=== PATIENT | male | born 1955 | race Caucasian/White ===

== ENCOUNTER 2017-04-04 15:38 | Inpatient (IN) ==
[2017-04-04] MEDS ORDERED: ACETAMINOPHEN 325 MG TABLET PO PRN (17:38)
[2017-04-04] MEDS ORDERED: DOCUSATE SODIUM 100 MG CAPSULE PO PRN (17:38)
[2017-04-04] MEDS ORDERED: DEXTROSE 50% 50 ML VIAL IV PRN (17:38)
[2017-04-04] MEDS ORDERED: DEXTROSE 31 GM ORAL.SUSP PO PRN (17:38)
[2017-04-04] MEDS ORDERED: ONDANSETRON 4 MG/2 ML VIAL IV PRN (17:38)
[2017-04-04] MEDS ORDERED: MAGNESIUM HYDROXIDE 30 ML ORAL.SUSP PO PRN (17:38)
--- NOTE | 2017-04-04 18:15 | Internal Med History&Physical ---
Medical - H&P: HPI Patient information: Note initiated : 04/04/17 at 6:11 pm Service Date, if different from initiated Date: [] Patient: Will Felix 61 y/o M admitted on 04/04/17 for Actue renal failure, hyperkalemia. Chief Complaint: [] Chief complaint: Lightheadedness History of present illness: Mr. Felix is a 61 year old man who presented to [facility] yesterday, complaining of lightheadedness. He notes that he has not been feeling very well for about 2 weeks, and has noted feeling somewhat lightheaded with slight head and neck ache, upper back discomfort, and generally feeling unwell whenever he goes out in the heat and tries to do things like chop wood. He says his symptoms resolve almost immediately once he gets out of the heat. He does have a history of coronary disease, and says he occasionally has some chest discomfort, but it never lasts. Yesterday something happened with his truck, and while he was out of the truck leaning underneath to have a look, he had slightly sharp left-sided chest discomfort and felt a little short of breath. This again resolved once he got back in the truck. He says he only occasionally has dyspnea with exertion, and denies any orthopnea. He has been having some mild heartburn for the last several days, which is unusual for him. He has not had any dysuria lately. He says he has been drinking lots of fluids to stay hydrated. He does take occasional ibuprofen, 200 mg, maybe twice a week for aches and pains. He also uses occasional topical Voltaren gel, for aching neck, but again not very often. He says he thought that it was just time to hold his doxazosin again, as he has had lightheadedness in the past related to that, which resolved when it was stopped. Evaluation showed acute renal failure associated with severe hyperkalemia. The patient was given IV fluids overnight, in addition to Kayexalate, albuterol , potassium and insulin. BUN and creatinine are improved today, but potassium continues to rise. He is now transferred here so that he can have access to nephrology consultation and possible dialysis. Past medical history: Coronary artery disease, status post stenting Pacemaker and AICD placement,? History of V. tach. Atrial fibrillation, status post ablation Type 2 diabetes, diet controlled. Hyperlipidemia Hypertension Morbid obesity, peak weight 499, status post gastric bypass Gout, as well as much and marked pseudogout. Obstructive sleep apnea, mild, on CPAP GERD History of gastric bypass History of both hypertension and hypotension History of kidney stones History of asthma Medications: Pravachol 80 mg nightly Lasix 10 mg daily Warfarin as directed Ibuprofen 200 mg once or twice a week as needed Coreg 25 mg twice daily Lisinopril 20 mg daily Aspirin 81 mg daily Potassium 10 mEq daily Allopurinol 300 mg daily Colchicine 0.6 mg daily Flexeril 10 mg nightly as needed Voltaren gel topically as needed joint pain Tramadol as needed Doxazosin 4 mg every afternoon, recently discontinued Calcium plus D5 100 mg daily Multivitamin 1 daily Allergies: Codeine Cortisone, caused syncope Ibuprofen? Byetta pollen Family history: Mother with CHF and COPD. Father with COPD. One brother with acute renal failure, hyperkalemia, uncontrolled diabetes. Another brother has heart disease. A sister has lung cancer. Another sister had COPD. Social history: The patient is and lives with his . He is retired on medical disability. He has never been a smoker and does not use drugs. He quit drinking alcohol many years ago. He previously worked as a cabinet professional. He says now he will occasionally cut firewood. Medical - H&P: Meds Allergies Allergy/AdvReac Type Severity Reaction Status Date / Time bee venom protein (honey bee) Allergy Severe Difficulty Verified 04/04/17 17:41 Breathing codeine AdvReac Intermediate Agitated Verified 04/04/17 17:40 Medical - H&P: Exam - Constitutional Vitals: Temperature 97.9, heart rate 70, respiratory rate 16, blood pressure 157/96, O2 saturation 100% on room air -Patient has produced 450 mL of urine since arrival On exam, this is a very pleasant, overweight white male, in no acute distress. He is alert and oriented. Head: Normocephalic, atraumatic. Eyes: PERRLA, EOMI, anicteric. Ears: TMs and canals are clear. Pharynx: Pharynx is clear. Mucosa is normal. He has a full upper plate. Most of the teeth of his lower jaw are missing, but there are a few broken teeth towards the front. Neck: Is supple, without lymphadenopathy, JVD, thyromegaly, bruits. Cardiac exam: Regular rate and rhythm, normal S1 and S2. No murmurs, rubs, gallops are noted. Pacemaker is noted in the left upper chest. Lungs: Clear to auscultation, without rales, rhonchi, wheezes. Abdomen: Is obese, but appears soft and nontender. There is no CVA tenderness. There is no guarding or rebound. Bowel sounds are active. Extremities: Shows minimal edema at the ankles, mostly nonpitting. There is no cyanosis, clubbing, edema. There are no breaks in the skin noted. Pulses are intact. Neurologic: Is grossly nonfocal. Skin exam: Did not show any obvious rashes or other worrisome lesions. Medical - H&P: Reslt - Labs CBC & Chem 7: 04/04/17 19:22 Labs: Labs from [facility]: April 03: Chemistry panel: Sodium 140, potassium 6.0, chloride 113, bicarb 15, anion gap 12, creatinine 4.65 April 04: Sodium 142, potassium 5.5, chloride 116, bicarb 16, anion gap 10, BUN 77, creatinine 3.97, glucose 74 Calcium 7.4 LFTs normal Troponin less than 0.06 Pro time is 35 with INR of 3.5 CBC shows white blood cell count 5.8, hemoglobin 11.6, hematocrit 36, MCV 90, RDW 15. Differential shows 8.6% eosinophils, absolute monocyte count of 590, with normal 100-400. CPK is elevated at 263 Renal ultrasound shows echogenic kidneys suggesting medical renal disease, no hydronephrosis Troponin is normal at less than 0.06 Urinalysis shows pH of 5.5, specific gravity 1.015, negative protein, negative ketones, trace blood, negative nitrites, rare red blood cell Random urine sodium is 70 Random creatinine is 64 Venous blood gas: PH 7.23 (7.3-7.4), PCO2 41, PO2 51, bicarb 17 (24-30), O2 saturation 78% EKG was paced. Medical - H&P: A/P (1) ARF (acute renal failure) Current visit: Yes Status: Acute (2) Acute hyperkalemia Current visit: Yes Status: Acute (3) Acidosis, metabolic Current visit: Yes Status: Acute (4) Elevated INR Current visit: Yes Status: Acute (5) Coronary artery disease Current visit: Yes Status: Chronic (6) Type 2 diabetes mellitus Current visit: Yes Status: Chronic (7) Hypertension Current visit: Yes Status: Chronic (8) Sleep apnea in adult Current visit: Yes Status: Chronic (9) Atrial fibrillation Current visit: Yes Status: Resolved (10) Pacemaker Current visit: Yes Status: Chronic (11) AICD (automatic cardioverter/defibrillator) present Current visit: Yes Status: Chronic (12) Morbid obesity Current visit: Yes Status: Chronic (13) Gout Current visit: Yes Status: Chronic (14) GERD (gastroesophageal reflux disease) Current visit: Yes Status: Acute (15) Asthma Current visit: Yes Status: Chronic - Narrative A/P Narrative: #1 renal. Apparent acute renal failure, likely at least partially due to dehydration and working out in the heat. He is also on several medications that could cause issues, including his as needed ibuprofen, topical Voltaren, allopurinol, lisinopril, colchicine. -Renal consult. -Continue hydration with IV fluids. Avoid nephrotoxic medications. -Severe hyperkalemia. This appears to have responded, at least briefly, to usual treatments. Repeat Kayexalate tonight. Continue insulin and IV fluids. Non-anion gap acidosis. Continue to monitor. 2. Hypertension. -Resume Coreg. Increase if needed. Lisinopril and Lasix are on hold at this time, but diuretics could be added back if needed. 3. Cardiac. Patient has history of coronary artery disease, stents, atrial fibrillation, pacemaker and AICD. -He does not appear to have had a a recent cardiac event, and certainly reports no symptoms that are really consistent with that. There is a chance that he is developed heart failure and/or hypotension, causing acute renal failure due to hypoperfusion. Consider echocardiogram. -Continue Coreg, aspirin. . . Resume warfarin as needed, to keep INR between 2 and 3. -Resume statin, KYLE, aspirin as tolerated. 4. Endocrine. -Type 2 diabetes. -Sliding scale insulin, Accu-Cheks. 5. CODE STATUS: Patient requests full code. 6. DVT prophylaxis: He is anticoagulated at this time. Management of Coumadin per pharmacy. 7. Pulmonary. History of sleep apnea, although the patient says it is very mild. We will monitor him tonight, and add BiPAP if needed. -Reported history of asthma. Albuterol as needed. 8. History of morbid obesity, status post bypass. Continue vitamin supplements. 9. History of gout. I will need to verify with nephrology if we should continue with the allopurinol and colchicine, or weight until his renal function improves. Next 10. GI. Recent GERD. Add Tums as needed. 11. Poor dentition. Patient hopes to follow-up with the [facility]. Approximately 60 minutes has been spent so far today, reviewing the patient's records from [facility], reviewing his case with the transferring doctor, interviewing and examining the patient, and writing orders.
[2017-04-04 19:18] LABS: Appearance,Urine CLEAR; Bilirubin,Urine NEG (NEG); Color,Urine STRAW; Glucose,Urine (UA) NEGATIVE (NEG); Leukocyte Esterase,Urine NEG /uL (NEG); Nitrate,Urine NEG (NEG); Protein,Urine NEG (NEG); Urine Blood NEG mg/dL (<0.03); Urobilinogen,Urine NEG (NEG)
[2017-04-04] MEDS: 0.45 % SODIUM CHLORIDE 1,000 ML IV SCH (20:29)
[2017-04-04 20:47] LABS: ALT/SGPT 27 U/l (0-40); Albumin 3.9 gm/dL (3.2-5.2); Albumin/Globulin Ratio 1.4 (1.0-2.3); Alkaline Phosphatase 85 U/L (39-117); Bilirubin,Direct < 0.2 mg/dL (0.0-0.3); Blood Urea Nitrogen 72 mg/dl (8-23); Gamma Glutamyl Transpeptidase 27 U/L (8-61); Magnesium 1.3 mg/dL (1.6-2.5); Uric Acid 5.4 mg/dL (2.5-8.0)
[2017-04-04] MEDS: INSULIN LISPRO 1 UNIT/0.01 ML UNIT SQ SCH (21:03)
--- NOTE | 2017-04-04 22:14 | Nephrology Consult Note ---
History of Present Illness - Reason for Consult Patient information: Note initiated : 04/04/17 at 10:07 pm Service Date, if different from initiated Date: [] Patient: Will Felix 61 y/o M admitted on 04/04/17 for Actue renal failure, hyperkalemia. Chief Complaint: [] - Chief Complaint Acute Renal Failure, Hyperkalemia - History of Present Illness 61 years old male transferred from [facility] in [facility], where he reports being admitted for "blurry vision" and "light-headedness" and stated that his BP was 89/50. He was reportedly out in the [place] [employer] [place]. He is diabetic and has h/o hypertension with episodes of hypotension in the past as well. He also has h/o Afib, CAD with stents. He stated that he takes Lasix and Lisinopril regularly and was also taking Ibuprofen that he usually takes 1-2 tablets twice a week. He was treated with IVF including D5W with bicarb and received insulin and Kayexalate as well. SCr was reportedly above 4.5 with serum potassium in mid 5s on last check at [facility]. Recent labs labs done at [facility] show serum potassium 5.1, SCr 3.4. He is now receiving IV 0.45 saline and has been urinating very frequently. Lasix, Lisinopril and NSAIDs, colchicine have been stopped. He does appear to have fluid overload but said that he has had "CHF" in the past. He stated that he usually have mild pedal edema which does appear to be more than his baseline , at the present time. Patient stated that he was also on Doxazosin that was recently stopped by his physician due to low blood pressure Review of Systems Constitutional: as per HPI Past History Past medical history: HTN, DM, Afib, CAD with stents. Hypotension. Hyperlipidemia. Gout. Morbid obesity s/p gastric bypass. Nephro-ureterolithiasis. AICD / pacemaker. Past surgical history: Gastric bypass Past family history: No FH of renal disease Past social history: Denied tobacco, alcohol or drug abuse. Reports being on disability. Lives with . Medications and Allergies Home Medications Medication Instructions Recorded Confirmed Type Allopurinol [Zylopriim] 300 mg PO DAILY 04/04/17 04/04/17 History Aspirin [Lo-Dose Aspirin EC] 81 mg PO QHS 04/04/17 04/04/17 History Calcium Carbonate/Vitamin D3 1 each PO DAILY 04/04/17 04/04/17 History [Os-Agustín 500+D3 Caplet] Carvedilol [Coreg] 25 mg PO BID 04/04/17 04/04/17 History Colchicine [Colcrys] 0.6 mg PO DAILY 04/04/17 04/04/17 History Cyclobenzaprine [Flexeril] 10 mg PO Q8H PRN 04/04/17 04/04/17 History Diclofenac Sodium [Voltaren] 100 gm TP PRN PRN 04/04/17 04/04/17 History Doxazosin [Cardura] 4 mg PO DAILY 04/04/17 04/04/17 History Furosemide [Lasix] 20 mg PO DAILY 04/04/17 04/04/17 History Ibuprofen [I-Prin] 200 - 400 mg PO Q4HP PRN 04/04/17 04/04/17 History Lisinopril [Zestril] 20 mg PO QHS 04/04/17 04/04/17 History Mv-Mn/FA/Coq10/Lycopene/Lutein 1 each PO DAILY 04/04/17 04/04/17 History [Theragran-M Premier 50+ Caplet] Potassium Chloride [Kdur] 10 meq PO DAILY 04/04/17 04/04/17 History Pravastatin Sodium [Pravachol] 80 mg PO QHS 04/04/17 04/04/17 History Warfarin Sodium [Jantoven] 3.75 mg PO DAILY 04/04/17 04/04/17 History Warfarin Sodium [Jantoven] 7.5 mg PO DAILY 04/04/17 04/04/17 History traMADol HCL [Ultram] 50 - 100 mg PO Q6HP PRN 04/04/17 04/04/17 History Allergies Allergy/AdvReac Type Severity Reaction Status Date / Time bee venom protein (honey bee) Allergy Severe Difficulty Verified 04/04/17 17:41 Breathing exenatide [From Byetta] Allergy Hives Verified 04/04/17 20:19 codeine AdvReac Mild Agitated Verified 04/04/17 19:48 Cortisone AdvReac Fainting Verified 04/04/17 20:19 ibuprofen AdvReac Nausea Verified 04/04/17 20:19 Exam - Vital Signs Vital signs: Temp Pulse Resp BP Pulse Ox 98.2 F 72 18 140/84 99 04/04/17 20:00 04/04/17 20:00 04/04/17 20:00 04/04/17 20:00 04/04/17 20:00 Results - Lab Results 04/04/17 19:22 Most recent lab results Calcium 7.1 mg/dl (8.6-10.4) L 04/04/17 19:22 Phosphorus 5.2 mg/dL (2.7-4.5) H 04/04/17 19:22 Magnesium 1.3 mg/dL (1.6-2.5) L 04/04/17 19:22 Assessment and Plan (1) ARF (acute renal failure) Baseline SCr - unknown JABIER / ARF, non-oliguric, history suggestive of possible volume depletion as well as hemodynamic injury in the setting of concomitant use of ACEI, NSAIDs and loop diuretics - medications on hold now. Hyperkalemia resolved, Kayexalate 15-30 grams po daily prn for serum potassium > 5.5. Mild metabolic acidosis - received IV D5W-Na bicarb, expect to improve with improvement in renal function - check Lactic, salicylate. IV saline infusion rate to be reduced to 100 ml/hr, check CK. VBG with am labs, renal diet, follow BMP Status: Acute
[2017-04-04] MEDS ORDERED: MAGNESIUM SULFATE 2 GM/50 ML BAG IV ONE ×2 (22:18→22:25)
[2017-04-05] MEDS: 0.45 % SODIUM CHLORIDE 1,000 ML IV SCH ×5 (02:52→17:17)
[2017-04-05 03:29] LABS: ABG Methemoglobin 0.3 % (0.4-1.5); VBG Base Excess -6.8 (-2.0-2.0); VBG HCO3 18.2 mmol/L (24.0-28.0); VBG Oxygen Saturation 93.1 % (40.0-70.0); VBG PCO2 34.6 mmHg (41.0-51.0); VBG PH 7.34 U (7.32-7.42); VBG PO2 120 mmHg (25-40); VBG Total CO2 19.3 mmol/L (25.0-29.0)
[2017-04-05 03:31] LABS: Basophils # (Auto) 0.1 K/mcL (0.0-0.3); Basophils % (Auto) 1.5 % (0.0-2.0); Eosinophils # (Auto) 0.5 K/mcL (0.0-0.7); Eosinophils % (Auto) 8.1 % (0.0-7.0); Granulocytes % (Auto) 54.5 % (38.0-78.0); Lymphocytes # (Auto) 1.4 K/mcL (1.5-4.8); Lymphocytes % (Auto) 25.1 % (15.5-49.0); Mean Cell Volume 89.6 fL (80.0-100.0); Mean Corpuscular HGB Conc 33.3 g/dL (31.0-36.0); Mean Corpuscular Hemoglobin 29.8 pg (26.0-34.0); Monocytes # (Auto) 0.6 K/mcL (0.1-0.9); Monocytes % (Auto) 10.8 % (1.0-12.0); Platelet Count 118 K/mcL (140-440); RBC 3.63 M/mcL (4.50-5.90); Red Cell Distribution Width 16.5 % (11.5-14.5)
[2017-04-05 04:03] LABS: ALT/SGPT 20 U/l (0-40); Albumin 3.4 gm/dL (3.2-5.2); Albumin/Globulin Ratio 1.5 (1.0-2.3); Alkaline Phosphatase 72 U/L (39-117); Bilirubin,Direct < 0.2 mg/dL (0.0-0.3); Blood Urea Nitrogen 64 mg/dl (8-23); Gamma Glutamyl Transpeptidase 25 U/L (8-61); Magnesium 1.5 mg/dL (1.6-2.5); Uric Acid 5.3 mg/dL (2.5-8.0)
[2017-04-05] MEDS ORDERED: MAGNESIUM SULFATE 2 GM/50 ML BAG IV ONE ×2 (04:45→04:56)
[2017-04-05] MEDS: INSULIN LISPRO 1 UNIT/0.01 ML UNIT SQ SCH ×4 (07:41→21:23)
--- NOTE | 2017-04-05 13:52 | Internal Med Progress Note ---
Medical - PN: Subj Patient information: Note initiated : 04/05/17 at 1:52 pm Service Date, if different from initiated Date: [] Patient: Will Felix 61 y/o M admitted on 04/04/17 for Actue Renal Failure, Hyperkalemia. Chief Complaint: [] Interval history: April 04, 2017: History of present illness: Mr. Felix is a 61 year old man who presented to [facility] yesterday, complaining of lightheadedness. He notes that he has not been feeling very well for about 2 weeks, and has noted feeling somewhat lightheaded with slight head and neck ache, upper back discomfort, and generally feeling unwell whenever he goes out in the heat and tries to do things like chop wood. He says his symptoms resolve almost immediately once he gets out of the heat. He does have a history of coronary disease, and says he occasionally has some chest discomfort, but it never lasts. Yesterday something happened with his truck, and while he was out of the truck leaning underneath to have a look, he had slightly sharp left-sided chest discomfort and felt a little short of breath. This again resolved once he got back in the truck. He says he only occasionally has dyspnea with exertion, and denies any orthopnea. He has been having some mild heartburn for the last several days, which is unusual for him. He has not had any dysuria lately. He says he has been drinking lots of fluids to stay hydrated. He does take occasional ibuprofen, 200 mg, maybe twice a week for aches and pains. He also uses occasional topical Voltaren gel, for aching neck, but again not very often. He says he thought that it was just time to hold his doxazosin again, as he has had lightheadedness in the past related to that, which resolved when it was stopped. Evaluation showed acute renal failure associated with severe hyperkalemia. The patient was given IV fluids overnight, in addition to Kayexalate, albuterol , potassium and insulin. BUN and creatinine are improved today, but potassium continues to rise. He is now transferred here so that he can have access to nephrology consultation and possible dialysis. April 05: The patient says he is feeling pretty well today. He denies any more lightheadedness or blurry vision. He says he is eating and drinking well. He denies chest pain or palpitations, shortness of breath, abdominal pain, nausea vomiting or diarrhea. He told the [facility] consultant today that his blood pressure had dropped into the 80s at times at home. Labs this morning, show continued improvement in BUN, creatinine, potassium, acidosis. -Oxygen was monitored overnight, and he did not show signs of desaturation even though he did not have his CPAP with him. - Constitutional Vitals: Vital Signs Temp Pulse Resp BP Pulse Ox 98.2 F 68 16 147/84 98 04/05/17 12:00 04/05/17 09:34 04/05/17 12:00 04/05/17 12:38 04/05/17 12:00 Period Temp Pulse Resp BP Sys/Mckeon Pulse Ox Last 24 Hr 97.6 F-98.2 F 68-75 16-18 140-161/78-110 97-100 Intake and Output 04/04/17 04/05/17 04/05/17 21:59 05:59 13:59 Intake Total 240 / 240 1760 / 1760 120 / 120 Output Total 450 / 450 1250 / 1250 450 / 450 Balance -210 / -210 510 / 510 -330 / -330 Weight 329 lb 1.6 oz Intake & Output: Intake & Output 04/04/17 04/05/17 04/05/17 21:59 05:59 13:59 Intake Total 240 / 240 1760 / 1760 120 / 120 Output Total 450 / 450 1250 / 1250 450 / 450 Balance -210 / -210 510 / 510 -330 / -330 Weight 329 lb 1.6 oz Intake: IV 1100 / 1100 MAGNESIUM SULFATE 2 gm In 50 / 50 50 ml As IV .[facility] Rx#:[id number] Oral 240 / 240 660 / 660 120 / 120 Output: Void Amount 450 / 450 1250 / 1250 450 / 450 Other: Meal Dinner Snack d/t CBG of 67 Breakfast Percent of Meal Consumed 100% 100% 75% Feeding Ability Assist with Tray Set Up Independent # Voids 1 On exam, he was walking around his room when I enter the room. Neck is supple without obvious JVD. Cardiac exam shows regular rate and rhythm. Lungs are clear to auscultation. Abdomen is soft and nontender. Extremities: Show about 1+ edema almost to the knees. Neurologic exam is grossly nonfocal. Medical - PN: Obj Da - Labs CBC & Chem 7: 04/05/17 03:02 04/05/17 03:02 Labs: Abnormal Lab Results 04/05/17 04/05/17 04/05/17 03:02 03:02 03:02 RBC Hgb Hct RDW Plt Count Eos % (Auto) Lymph # (Auto) PT 30.0 H INR 2.7 H ABG Methemoglobin 0.3 L VBG pCO2 34.6 L VBG pO2 120 H VBG HCO3 18.2 L VBG Total CO2 19.3 L VBG O2 Saturation 93.1 H VBG Base Excess -6.8 L Carboxyhemoglobin 3.8 H Total Hemoglobin 10.6 L Carbon Dioxide 17 L Anion Gap BUN 64 H Creatinine 3.2 H Glucose 67 L Calcium 6.8 L Phosphorus 5.4 H Magnesium 1.5 L Lactate Dehydrogenase 272 H Total Creatine Kinase Total Protein 5.7 L Acetaminophen 04/05/17 04/04/17 04/04/17 03:02 19:22 18:47 RBC 3.63 L Hgb 10.8 L Hct 32.6 L RDW 16.5 H Plt Count 118 L Eos % (Auto) 8.1 H Lymph # (Auto) 1.4 L PT INR ABG Methemoglobin VBG pCO2 VBG pO2 VBG HCO3 VBG Total CO2 VBG O2 Saturation VBG Base Excess Carboxyhemoglobin Total Hemoglobin Carbon Dioxide 17 L Anion Gap 17.0 H BUN 72 H Creatinine 3.4 H Glucose Calcium 7.1 L Phosphorus 5.2 H Magnesium 1.3 L Lactate Dehydrogenase 322 H Total Creatine Kinase Total Protein Acetaminophen < 5.0 L 04/04/17 18:47 RBC Hgb Hct RDW Plt Count Eos % (Auto) Lymph # (Auto) PT INR ABG Methemoglobin VBG pCO2 VBG pO2 VBG HCO3 VBG Total CO2 VBG O2 Saturation VBG Base Excess Carboxyhemoglobin Total Hemoglobin Carbon Dioxide Anion Gap BUN Creatinine Glucose Calcium Phosphorus Magnesium Lactate Dehydrogenase Total Creatine Kinase 248 H Total Protein Acetaminophen April 05: CBC: Hemoglobin 10.8, hematocrit 32.6, RDW 16.5, platelets low at 118,000. Differential shows 8100 eosinophils -INR is within range at 2.7 Venous blood gas shows pH of 7.34, PCO2 of 34, PO2 of 120, bicarb of 18, Chemistry panel: Shows potassium 5.0, bicarbonate 17, BUN 64, creatinine 3.2, glucose 67, calcium 6.8, albumin 3.4, phosphorus elevated at 5.4, magnesium low at 1.5 April 04: MRSA screen is negative. Labs from [place]: April 03: Chemistry panel: Sodium 140, potassium 6.0, chloride 113, bicarb 15, anion gap 12, creatinine 4.65 April 04: Sodium 142, potassium 5.5, chloride 116, bicarb 16, anion gap 10, BUN 77, creatinine 3.97, glucose 74 Calcium 7.4 LFTs normal Troponin less than 0.06 Pro time is 35 with INR of 3.5 CBC shows white blood cell count 5.8, hemoglobin 11.6, hematocrit 36, MCV 90, RDW 15. Differential shows 8.6% eosinophils, absolute monocyte count of 590, with normal 100-400. CPK is elevated at 263 Renal ultrasound shows echogenic kidneys suggesting medical renal disease, no hydronephrosis Troponin is normal at less than 0.06 Urinalysis shows pH of 5.5, specific gravity 1.015, negative protein, negative ketones, trace blood, negative nitrites, rare red blood cell Random urine sodium is 70 Random creatinine is 64 Venous blood gas: PH 7.23 (7.3-7.4), PCO2 41, PO2 51, bicarb 17 (24-30), O2 saturation 78% EKG was paced. Meds: Medications Acetaminophen (Tylenol) 650 mg PO Q6HP PRN PRN Reason: PAIN/FEVER > 101 Dextrose (Dextrose 50%) 0 ml IV UD PRN PRN Reason: Hypoglycemia Diagnostic Test (Pha) (Accu-Chek) 1 each FS [facility] Last Admin: 04/05/17 12:35 Dose: 1 each Docusate Sodium (Colace) 100 mg PO BID PRN PRN Reason: Constipation Glucose (Insta-Glucose) 15 gm PO PRN PRN PRN Reason: Hypoglycemia Sodium Chloride (Sodium Chloride 0.45%) 1,000 mls @ 100 mls/hr IV .Q10H [facility] Last Admin: 04/05/17 05:52 Dose: 100 mls/hr Insulin Human Lispro (Humalog) 0 unit SQ [facility] PRN Reason: Protocol Last Admin: 04/05/17 13:43 Dose: Not Given Magnesium Hydroxide (Milk Of Magnesia) 30 ml PO DAILYP PRN PRN Reason: Constipation Ondansetron HCl (Zofran) 4 mg IV Q4HP PRN PRN Reason: Nausea And Vomiting Warfarin Sodium (Coumadin Per Pharmacy) 1 order PO DAILY@1400 [place] - ABG Interpretation ABG results: 04/05/17 03:02 ABG Methemoglobin 0.3 L VBG pH 7.34 VBG pCO2 34.6 L VBG pO2 120 H VBG HCO3 18.2 L VBG Total CO2 19.3 L VBG O2 Saturation 93.1 H VBG Base Excess -6.8 L Medical - PN: A/P - Time Spent With Patient Total time spent is greater than 50% in coordination of care (as documented) at patient's floor/unit and/or counseling patient: 25 - 35 minutes (1) ARF (acute renal failure) Status: Acute Current Visit: Yes (2) Acute hyperkalemia Status: Acute Current Visit: Yes (3) Acidosis, metabolic Status: Acute Current Visit: Yes (4) Elevated INR Status: Acute Current Visit: Yes (5) Coronary artery disease Status: Chronic Current Visit: Yes (6) Type 2 diabetes mellitus Status: Chronic Current Visit: Yes (7) Hypertension Status: Chronic Current Visit: Yes (8) Sleep apnea in adult Status: Chronic Current Visit: Yes (9) Atrial fibrillation Status: Resolved Current Visit: Yes (10) Pacemaker Status: Chronic Current Visit: Yes (11) AICD (automatic cardioverter/defibrillator) present Status: Chronic Current Visit: Yes (12) Morbid obesity Status: Chronic Current Visit: Yes (13) Gout Status: Chronic Current Visit: Yes (14) GERD (gastroesophageal reflux disease) Status: Acute Current Visit: Yes (15) Asthma Status: Chronic Current Visit: Yes - Narrative A/P Narrative: #1 renal. Apparent acute renal failure, likely at least partially due to dehydration and working out in the heat. He was on several medications that could cause issues , including his as needed ibuprofen, topical Voltaren, allopurinol, lisinopril, colchicine. -Renal consult appreciated.. -Continue hydration with IV fluids. Avoid nephrotoxic medications. -Severe hyperkalemia. Resolved. -Metabolic acidosis. Improving. Nephrology added bicarbonate and Tums. Continue to monitor. 2. Hypertension. -Resume Coreg. Increase if needed. Lisinopril and Lasix are on hold at this time, but diuretics could be added back if needed. 3. Cardiac. Patient has history of coronary artery disease, stents, atrial fibrillation, pacemaker and AICD. -He does not appear to have had a a recent cardiac event, and certainly reports no symptoms that are really consistent with that. There is a chance that he is developed heart failure and/or hypotension, causing acute renal failure due to hypoperfusion. Consider echocardiogram. -Continue Coreg, aspirin. . . Resume warfarin as needed, to keep INR between 2 and 3. -Resume statin, KYLE, aspirin as tolerated. 4. Endocrine. -Type 2 diabetes. -Sliding scale insulin, Accu-Cheks. 5. CODE STATUS: Patient requests full code. 6. DVT prophylaxis: He is anticoagulated at this time. Management of Coumadin per pharmacy. 7. Pulmonary. History of sleep apnea, although the patient says it is very mild. He did fine overnight without CPAP. -Reported history of asthma. Albuterol as needed. 8. History of morbid obesity, status post bypass. Continue vitamin supplements. 9. History of gout. -Hold colchicine. Resume allopurinol. 10. GI. Recent GERD. Add Tums as needed. 11. Poor dentition. Patient hopes to follow-up with the [facility]. Medical - PN: Qual - VTE Deep Vein Thrombosis/Pulmonary Embolism Present on Admission: No
[2017-04-05] MEDS ORDERED: 0.45 % SODIUM CHLORIDE 1,000 ML IV SCH (15:36)
--- NOTE | 2017-04-05 15:39 | Nephrology Progress Note ---
Subjective Patient information: Note initiated : 04/05/17 at 3:37 pm Service Date, if different from initiated Date: [] Patient: Will Felix 61 y/o M admitted on 04/04/17 for Actue Renal Failure, Hyperkalemia. Chief Complaint: [] Principal diagnosis: JABIER Interval history: No overnight events pt is non oliguric with some improvement in renal function he has no new symptoms today denies SOB, CP,d izziness No worsening edema Pertinent ROS: as above Objective - Vital Signs Vital signs: Vital Signs Temp Pulse Pulse Resp BP BP Pulse Ox 04/05/17 12:38 147/84 04/05/17 12:00 98.2 F 16 147/84 98 04/05/17 09:34 68 97 04/05/17 07:34 70 145/89 99 04/05/17 07:30 97.6 F 16 145/89 99 04/05/17 03:13 98.2 F 69 70 18 147/79 147/79 97 04/04/17 23:38 98.2 F 75 18 146/78 98 04/04/17 23:22 70 146/78 98 04/04/17 20:51 72 140/84 99 04/04/17 20:00 98.2 F 72 18 140/84 99 04/04/17 17:43 157/96 04/04/17 17:41 161/110 04/04/17 17:39 97.9 F 16 157/96 100 04/04/17 17:22 97.8 F 16 157/96 100 Intake and Output 04/05/17 04/05/17 04/05/17 05:59 13:59 21:59 Intake Total 1760 / 1760 120 / 120 Output Total 1250 / 1250 450 / 450 Balance 510 / 510 -330 / -330 Intake: IV 1100 / 1100 MAGNESIUM SULFATE 2 gm In 50 / 50 50 ml As IV .[facility] Rx#:[id number] Oral 660 / 660 120 / 120 Output: Void Amount 1250 / 1250 450 / 450 Other: Meal Snack d/t CBG of 67 Breakfast Percent of Meal Consumed 100% 75% Feeding Ability Independent # Voids 1 Intake & Output: Intake & Output 04/05/17 04/05/17 04/05/17 05:59 13:59 21:59 Intake Total 1760 / 1760 120 / 120 Output Total 1250 / 1250 450 / 450 Balance 510 / 510 -330 / -330 Intake: IV 1100 / 1100 MAGNESIUM SULFATE 2 gm In 50 / 50 50 ml As IV .[facility] Rx#:[id number] Oral 660 / 660 120 / 120 Output: Void Amount 1250 / 1250 450 / 450 Other: Meal Snack d/t CBG of 67 Breakfast Percent of Meal Consumed 100% 75% Feeding Ability Independent # Voids 1 - General Appearance General appearance: appears started age, obese EENT: mucous membranes moist Neck: no JVD Respiratory: clear Cardiology: no rub, no edema, normal S1, normal S2 Gastrointestinal: no tenderness, no guarding Integumentary: no rash, warm and dry Neurologic: no focal deficit, alert and oriented x3 Musculoskeletal: no deformities, no erythema Psychiatric: mood/affect appropriate - Lab 04/05/17 03:02 04/05/17 03:02 Most recent lab results Calcium 6.8 mg/dl (8.6-10.4) L 04/05/17 03:02 Phosphorus 5.4 mg/dL (2.7-4.5) H 04/05/17 03:02 Magnesium 1.5 mg/dL (1.6-2.5) L 04/05/17 03:02 Assessment and Plan (1) ARF (acute renal failure) acute renal failure likely ATN from hypotension in the setting of use of ACEI, NSAIDS and diuretics renal US done at [facility] is negative for obstructive etiology UA is normal with no protienuria and no hematuria unknown baseline s.creatinine, pt does not recollect any kidney issues metabolic acidosis from JABIER, STABLE Mild hypocalcemia, hypomagnsemia and hyperphosphatemia related to JABIER and use of diuretics anemia: will obtain work upif Hb continues to trend down h/o HTN/CHF: stable plan: magnesium replacement already given will add tums for elevated phos level and sodium bicarb for mild persistent acidosis will cut back on IVF to 75cc/hour, he has good oral intake and follow and d.c this by tomorrow continue to hold ACEI/diuretics for now avoid nephrotoxic meds dose meds to egfr monitor I/O, vital signs will follow along Status: Acute (2) Acidosis, metabolic Status: Acute
[2017-04-05] MEDS ORDERED: DEXTROSE 31 GM ORAL.SUSP PO PRN (16:36)
[2017-04-05] MEDS ORDERED: DEXTROSE 50% 50 ML VIAL IV PRN (16:36)
[2017-04-05] MEDS ORDERED: MAGNESIUM HYDROXIDE 30 ML ORAL.SUSP PO PRN (16:36)
[2017-04-05] MEDS ORDERED: DOCUSATE SODIUM 100 MG CAPSULE PO PRN (16:36)
[2017-04-05] MEDS ORDERED: CYCLOBENZAPRINE 10 MG TABLET PO PRN (16:36)
[2017-04-05] MEDS ORDERED: ACETAMINOPHEN 325 MG TABLET PO PRN (16:36)
[2017-04-05] MEDS: CALCIUM CARBONATE 500 MG TAB.CHEW CHEWED SCH (17:17)
[2017-04-05] MEDS: CARVEDILOL 12.5 MG TABLET PO SCH (17:17)
[2017-04-05] MEDS ORDERED: CALCIUM CARBONATE 500 MG TAB.CHEW CHEWED SCH (17:30)
[2017-04-05] MEDS ORDERED: WARFARIN 2 MG TABLET PO ONE (17:35)
[2017-04-05] MEDS ORDERED: WARFARIN 5 MG TABLET ONE (17:35)
[2017-04-05] MEDS ORDERED: WARFARIN 1 MG TABLET ONE (17:36)
[2017-04-05] MEDS: WARFARIN 7.5 MG TABLET PO SCH (17:38)
[2017-04-05] MEDS ORDERED: SODIUM BICARBONATE 650 MG TABLET PO SCH (21:00)
[2017-04-05] MEDS ORDERED: PRAVASTATIN SODIUM 80 MG PO SCH (21:00)
[2017-04-05] MEDS: SIMVASTATIN 40 MG TABLET PO SCH (21:19)
[2017-04-05] MEDS: SODIUM BICARBONATE 650 MG TABLET PO SCH (21:19)
[2017-04-05] MEDS: ASPIRIN 81 MG TAB.CHEW PO SCH (21:19)
[2017-04-05] MEDS ORDERED: hydrALAZINE 10 MG TABLET PO ONE (23:42)
[2017-04-06] MEDS ORDERED: FUROSEMIDE 20 MG/2 ML VIAL IV ONE ×2 (05:00→05:12)
[2017-04-06] MEDS: 0.45 % SODIUM CHLORIDE 1,000 ML IV SCH ×2 (06:50→20:26)
[2017-04-06 07:06] LABS: Basophils # (Auto) 0.1 K/mcL (0.0-0.3); Basophils % (Auto) 1.8 % (0.0-2.0); Eosinophils # (Auto) 0.5 K/mcL (0.0-0.7); Eosinophils % (Auto) 9.2 % (0.0-7.0); Granulocytes % (Auto) 58.8 % (38.0-78.0); Lymphocytes # (Auto) 1.2 K/mcL (1.5-4.8); Lymphocytes % (Auto) 20.6 % (15.5-49.0); Mean Cell Volume 91.4 fL (80.0-100.0); Mean Corpuscular Hemoglobin 30.1 pg (26.0-34.0); Monocytes # (Auto) 0.6 K/mcL (0.1-0.9); Monocytes % (Auto) 9.6 % (1.0-12.0); Platelet Count 127 K/mcL (140-440); RBC 3.99 M/mcL (4.50-5.90); Red Cell Distribution Width 16.1 % (11.5-14.5)
[2017-04-06 07:57] LABS: ALT/SGPT 27 U/l (0-40); Albumin 4.1 gm/dL (3.2-5.2); Albumin/Globulin Ratio 1.6 (1.0-2.3); Alkaline Phosphatase 89 U/L (39-117); Bilirubin,Direct < 0.2 mg/dL (0.0-0.3); Blood Urea Nitrogen 55 mg/dl (8-23); Gamma Glutamyl Transpeptidase 27 U/L (8-61); Magnesium 1.8 mg/dL (1.6-2.5); Uric Acid 5.1 mg/dL (2.5-8.0)
[2017-04-06] MEDS: CARVEDILOL 12.5 MG TABLET PO SCH ×2 (08:08→16:29)
[2017-04-06] MEDS: CALCIUM CARBONATE 500 MG TAB.CHEW CHEWED SCH ×3 (08:09→17:44)
[2017-04-06] MEDS: ALLOPURINOL 300 MG TABLET PO SCH (08:09)
[2017-04-06] MEDS: CALCIUM W/VIT D3 500 MG TABLET PO SCH (08:09)
[2017-04-06] MEDS: SODIUM BICARBONATE 650 MG TABLET PO SCH ×2 (08:09→20:24)
[2017-04-06] MEDS: MULTIVIT,THER IRON,CA,FA & MIN 1 TABLET PO SCH (08:09)
[2017-04-06] MEDS: INSULIN LISPRO 1 UNIT/0.01 ML UNIT SQ SCH ×4 (08:11→20:29)
[2017-04-06] MEDS ORDERED: amLODIPine 5 MG TABLET PO ONE (13:19)
--- NOTE | 2017-04-06 13:19 | Internal Med Progress Note ---
Medical - PN: Subj Patient information: Note initiated : 04/06/17 at 1:19 pm Service Date, if different from initiated Date: [] Patient: Will Felix 61 y/o M admitted on 04/04/17 for Actue Renal Failure, Hyperkalemia. Chief Complaint: [] Interval history: April 04, 2017: History of present illness: Mr. Felix is a 61 year old man who presented to [facility] yesterday, complaining of lightheadedness. He notes that he has not been feeling very well for about 2 weeks, and has noted feeling somewhat lightheaded with slight head and neck ache, upper back discomfort, and generally feeling unwell whenever he goes out in the heat and tries to do things like chop wood. He says his symptoms resolve almost immediately once he gets out of the heat. He does have a history of coronary disease, and says he occasionally has some chest discomfort, but it never lasts. Yesterday something happened with his truck, and while he was out of the truck leaning underneath to have a look, he had slightly sharp left-sided chest discomfort and felt a little short of breath. This again resolved once he got back in the truck. He says he only occasionally has dyspnea with exertion, and denies any orthopnea. He has been having some mild heartburn for the last several days, which is unusual for him. He has not had any dysuria lately. He says he has been drinking lots of fluids to stay hydrated. He does take occasional ibuprofen, 200 mg, maybe twice a week for aches and pains. He also uses occasional topical Voltaren gel, for aching neck, but again not very often. He says he thought that it was just time to hold his doxazosin again, as he has had lightheadedness in the past related to that, which resolved when it was stopped. Evaluation showed acute renal failure associated with severe hyperkalemia. The patient was given IV fluids overnight, in addition to Kayexalate, albuterol , potassium and insulin. BUN and creatinine are improved today, but potassium continues to rise. He is now transferred here so that he can have access to nephrology consultation and possible dialysis. April 05: The patient says he is feeling pretty well today. He denies any more lightheadedness or blurry vision. He says he is eating and drinking well. He denies chest pain or palpitations, shortness of breath, abdominal pain, nausea vomiting or diarrhea. He told the systems development manager today that his blood pressure had dropped into the 80s at times at home. Labs this morning, show continued improvement in BUN, creatinine, potassium, acidosis. -Oxygen was monitored overnight, and he did not show signs of desaturation even though he did not have his CPAP with him. April 06: -Today, the patient says he is feeling fine. He has been ambulating in the hallways, and is getting anxious to go home. -Otherwise, blood pressures were quite elevated overnight. He blames it on having a lot of pain in his right lower jaw tooth. He has been having tooth pain for a number of weeks now. -Otherwise, he denies fever or chills. He notes he was having some mild abdominal bloating, but that was relieved after he had a bowel movement. He denies chest pain or palpitations, shortness of breath, nausea or vomiting, diarrhea, dysuria. - Constitutional Vitals: Vital Signs Temp Pulse Resp BP Pulse Ox 97.6 F 70 16 163/98 99 04/06/17 12:00 04/06/17 04:00 04/06/17 12:00 04/06/17 12:00 04/06/17 12:00 Period Temp Pulse Resp BP Sys/Mckeon Pulse Ox Last 24 Hr 97.4 F-98.0 F 70-71 16-20 133-182/77-104 97-100 Intake and Output 04/05/17 04/06/17 04/06/17 21:59 05:59 13:59 Intake Total 1240 / 1240 560 / 560 1920 / 1920 Output Total 1425 / 1425 1250 / 1250 Balance 1240 / 1240 -865 / -865 670 / 670 Weight 330 lb Intake & Output: Intake & Output 04/05/17 04/06/17 04/06/17 21:59 05:59 13:59 Intake Total 1240 / 1240 560 / 560 1920 / 1920 Output Total 1425 / 1425 1250 / 1250 Balance 1240 / 1240 -865 / -865 670 / 670 Weight 330 lb Intake: IV 1000 / 1000 1000 / 1000 Sodium Chloride 0.45% 1, 1000 / 1000 1000 / 1000 000 ml @ 75 mls/hr IV . [id number] [facility] Rx#:[id number] Oral 240 / 240 200 / 200 920 / 920 GI Tube Flush 360 / 360 Output: Void Amount 1425 / 1425 1250 / 1250 Other: Meal Lunch Breakfast Percent of Meal Consumed 50% 100% Feeding Ability Independent On exam, he is sitting up in a chair. Cannot alert, and cooperative. Blood pressures are ranging from 133-170/89-98 Pharynx: He has very poor dentition of the lower jaw. A right lower incisor is somewhat black, and very tender to palpation. Neck: Is supple without obvious JVD or lymphadenopathy. Cardiac exam shows regular rate and rhythm. Lungs are clear to auscultation. Abdomen is soft and nontender. Extremities: Show about 2+ pitting edema to about mid calf. Neurologic exam is grossly nonfocal Medical - PN: Obj Da - Labs CBC & Chem 7: 04/06/17 05:30 04/06/17 05:30 Labs: Abnormal Lab Results 04/06/17 04/06/17 04/06/17 05:30 05:30 05:30 RBC 3.99 L Hgb 12.0 L Hct 36.5 L RDW 16.1 H Plt Count 127 L Eos % (Auto) 9.2 H Lymph # (Auto) 1.2 L PT 22.0 H INR 1.9 H ABG Methemoglobin VBG pCO2 VBG pO2 VBG HCO3 VBG Total CO2 VBG O2 Saturation VBG Base Excess Carboxyhemoglobin Total Hemoglobin Carbon Dioxide 19 L Anion Gap BUN 55 H Creatinine 2.8 H Glucose Calcium 7.7 L Phosphorus 4.8 H Magnesium Lactate Dehydrogenase 299 H Total Creatine Kinase Total Protein Acetaminophen 04/05/17 04/05/17 04/05/17 03:02 03:02 03:02 RBC Hgb Hct RDW Plt Count Eos % (Auto) Lymph # (Auto) PT 30.0 H INR 2.7 H ABG Methemoglobin 0.3 L VBG pCO2 34.6 L VBG pO2 120 H VBG HCO3 18.2 L VBG Total CO2 19.3 L VBG O2 Saturation 93.1 H VBG Base Excess -6.8 L Carboxyhemoglobin 3.8 H Total Hemoglobin 10.6 L Carbon Dioxide 17 L Anion Gap BUN 64 H Creatinine 3.2 H Glucose 67 L Calcium 6.8 L Phosphorus 5.4 H Magnesium 1.5 L Lactate Dehydrogenase 272 H Total Creatine Kinase Total Protein 5.7 L Acetaminophen 04/05/17 04/04/17 04/04/17 03:02 19:22 18:47 RBC 3.63 L Hgb 10.8 L Hct 32.6 L RDW 16.5 H Plt Count 118 L Eos % (Auto) 8.1 H Lymph # (Auto) 1.4 L PT INR ABG Methemoglobin VBG pCO2 VBG pO2 VBG HCO3 VBG Total CO2 VBG O2 Saturation VBG Base Excess Carboxyhemoglobin Total Hemoglobin Carbon Dioxide 17 L Anion Gap 17.0 H BUN 72 H Creatinine 3.4 H Glucose Calcium 7.1 L Phosphorus 5.2 H Magnesium 1.3 L Lactate Dehydrogenase 322 H Total Creatine Kinase Total Protein Acetaminophen < 5.0 L 04/04/17 18:47 RBC Hgb Hct RDW Plt Count Eos % (Auto) Lymph # (Auto) PT INR ABG Methemoglobin VBG pCO2 VBG pO2 VBG HCO3 VBG Total CO2 VBG O2 Saturation VBG Base Excess Carboxyhemoglobin Total Hemoglobin Carbon Dioxide Anion Gap BUN Creatinine Glucose Calcium Phosphorus Magnesium Lactate Dehydrogenase Total Creatine Kinase 248 H Total Protein Acetaminophen April 05: CBC: Hemoglobin 10.8, hematocrit 32.6, RDW 16.5, platelets low at 118,000. Differential shows 8100 eosinophils -INR is within range at 2.7 Venous blood gas shows pH of 7.34, PCO2 of 34, PO2 of 120, bicarb of 18, Chemistry panel: Shows potassium 5.0, bicarbonate 17, BUN 64, creatinine 3.2, glucose 67, calcium 6.8, albumin 3.4, phosphorus elevated at 5.4, magnesium low at 1.5 April 04: MRSA screen is negative. Labs from [facility]: April 03: Chemistry panel: Sodium 140, potassium 6.0, chloride 113, bicarb 15, anion gap 12, creatinine 4.65 April 04: Sodium 142, potassium 5.5, chloride 116, bicarb 16, anion gap 10, BUN 77, creatinine 3.97, glucose 74 Calcium 7.4 LFTs normal Troponin less than 0.06 Pro time is 35 with INR of 3.5 CBC shows white blood cell count 5.8, hemoglobin 11.6, hematocrit 36, MCV 90, RDW 15. Differential shows 8.6% eosinophils, absolute monocyte count of 590, with normal 100-400. CPK is elevated at 263 Renal ultrasound shows echogenic kidneys suggesting medical renal disease, no hydronephrosis Troponin is normal at less than 0.06 Urinalysis shows pH of 5.5, specific gravity 1.015, negative protein, negative ketones, trace blood, negative nitrites, rare red blood cell Random urine sodium is 70 Random creatinine is 64 Venous blood gas: PH 7.23 (7.3-7.4), PCO2 41, PO2 51, bicarb 17 (24-30), O2 saturation 78% EKG was paced. Meds: Medications Acetaminophen (Tylenol) 650 mg PO Q6HP PRN PRN Reason: PAIN/FEVER > 101 Allopurinol (Zylopriim) 300 mg PO DAILY [facility] Last Admin: 04/06/17 08:09 Dose: 300 mg Aspirin (Aspirin) 81 mg PO HS [facility] Last Admin: 04/05/17 21:19 Dose: 81 mg Calcium Carbonate/Glycine (Tums) 500 mg CHEWED TIDCC [facility] Last Admin: 04/06/17 12:55 Dose: 500 mg Calcium/Vitamin D (Calcium W/Vit D3) 500 mg PO DAILY [facility] Last Admin: 04/06/17 08:09 Dose: 500 mg Carvedilol (Coreg) 25 mg PO BIDCC [facility] Last Admin: 04/06/17 08:08 Dose: 25 mg Cyclobenzaprine HCl (Flexeril) 10 mg PO Q8HP PRN PRN Reason: Pain Dextrose (Dextrose 50%) 0 ml IV UD PRN PRN Reason: Hypoglycemia Diagnostic Test (Pha) (Accu-Chek) 1 each FS [facility] Last Admin: 04/06/17 12:55 Dose: 1 each Docusate Sodium (Colace) 100 mg PO BID PRN PRN Reason: Constipation Glucose (Insta-Glucose) 15 gm PO PRN PRN PRN Reason: Hypoglycemia Sodium Chloride (Sodium Chloride 0.45%) 1,000 mls @ 75 mls/hr IV .[id number] [facility] Last Admin: 04/06/17 06:50 Dose: 75 mls/hr Insulin Human Lispro (Humalog) 0 unit SQ [facility] PRN Reason: Protocol Last Admin: 04/06/17 12:55 Dose: Not Given Iron Carb/Multivit/[place]/Folic Acid (Multivitamin W/Minerals) 1 tab PO DAILY [facility] Last Admin: 04/06/17 08:09 Dose: 1 tab Magnesium Hydroxide (Milk Of Magnesia) 30 ml PO DAILYP PRN PRN Reason: Constipation Ondansetron HCl (Zofran) 4 mg IV Q4HP PRN PRN Reason: Nausea And Vomiting Simvastatin (Zocor) 40 mg PO HS [facility] Last Admin: 04/05/17 21:19 Dose: 40 mg Sodium Bicarbonate (Sodium Bicarbonate) 650 mg PO BID [facility] Last Admin: 04/06/17 08:09 Dose: 650 mg Tramadol HCl (Ultram) 50 - 100 mg PO Q6HP PRN PRN Reason: Pain Warfarin Sodium (Coumadin) 3.75 mg PO MoWe@1400 [facility] Warfarin Sodium (Coumadin Per Pharmacy) 1 order PO DAILY@1400 [facility] Warfarin Sodium (Coumadin) 7.5 mg PO ONCE@1400 [facility] Stop: 04/06/17 14:01 - ABG Interpretation ABG results: 04/05/17 03:02 ABG Methemoglobin 0.3 L VBG pH 7.34 VBG pCO2 34.6 L VBG pO2 120 H VBG HCO3 18.2 L VBG Total CO2 19.3 L VBG O2 Saturation 93.1 H VBG Base Excess -6.8 L Medical - PN: A/P - Time Spent With Patient Total time spent is greater than 50% in coordination of care (as documented) at patient's floor/unit and/or counseling patient: 25 - 35 minutes (1) ARF (acute renal failure) Status: Acute Current Visit: Yes (2) Acute hyperkalemia Status: Acute Current Visit: Yes (3) Acidosis, metabolic Status: Acute Current Visit: Yes (4) Elevated INR Status: Acute Current Visit: Yes (5) Coronary artery disease Status: Chronic Current Visit: Yes (6) Type 2 diabetes mellitus Status: Chronic Current Visit: Yes (7) Hypertension Status: Chronic Current Visit: Yes (8) Sleep apnea in adult Status: Chronic Current Visit: Yes (9) Atrial fibrillation Status: Resolved Current Visit: Yes (10) Pacemaker Status: Chronic Current Visit: Yes (11) AICD (automatic cardioverter/defibrillator) present Status: Chronic Current Visit: Yes (12) Morbid obesity Status: Chronic Current Visit: Yes (13) Gout Status: Chronic Current Visit: Yes (14) GERD (gastroesophageal reflux disease) Status: Acute Current Visit: Yes (15) Asthma Status: Chronic Current Visit: Yes (16) Dental abscess Status: Acute Current Visit: Yes - Narrative A/P Narrative: #1 renal. Apparent acute renal failure, likely at least partially due to dehydration and working out in the heat. He was on several medications that could cause issues , including his as needed ibuprofen, topical Voltaren, allopurinol, lisinopril, colchicine. -His labs continue to improve. -Renal consult appreciated.. -Continue hydration with IV fluids. Avoid nephrotoxic medications. -Severe hyperkalemia. Resolved. -Metabolic acidosis. Improving. Nephrology added bicarbonate and Tums. Continue to monitor. 2. Hypertension. Blood pressures have been running quite high overnight. The patient blames this at least partly on his tooth pain. IV fluids are probably aggravating, as is holding his lisinopril. -He was given hydralazine last night, Lasix this morning, amlodipine this afternoon, and continues to run a bit high. Coreg will be given early this afternoon. I will also offer pain medications for his tooth. -Resumed Coreg. Increase if needed. Lisinopril on hold at this time, but diuretics could be added back if needed. 3. Cardiac. Patient has history of coronary artery disease, stents, atrial fibrillation, pacemaker and AICD. -He does not appear to have had a a recent cardiac event, and certainly reports no symptoms that are really consistent with that. There is a chance that he is developed heart failure and/or hypotension, causing acute renal failure due to hypoperfusion. Consider echocardiogram. -Continue Coreg, aspirin. . . Resume warfarin as needed, to keep INR between 2 and 3. -Resume statin, KYLE, aspirin as tolerated. 4. Endocrine. -Type 2 diabetes. Accu-Cheks ranging from 82-173. -Sliding scale insulin, Accu-Cheks. 5. CODE STATUS: Patient requests full code. 6. DVT prophylaxis: He is anticoagulated at this time. Management of Coumadin per pharmacy. 7. Pulmonary. History of sleep apnea, although the patient says it is very mild. He did fine overnight without CPAP. -Reported history of asthma. Albuterol as needed. 8. History of morbid obesity, status post bypass. Continue vitamin supplements. 9. History of gout. -Hold colchicine. Resume allopurinol. 10. GI. Recent GERD. Add Tums as needed. 11. Dental. The patient has a very painful tooth in his right lower jaw, and may well have an underlying dental abscess. Patient hopes to follow-up with the [facility]. -Add oral Augmentin today, to see if we can lessen infection and pain. Approximately 30 minutes was spent so far today, reviewing patient's test results, interviewing and examining him, touching base with nephrology, and writing orders. Medical - PN: Qual - VTE Deep Vein Thrombosis/Pulmonary Embolism Present on Admission: No
[2017-04-06] MEDS ORDERED: WARFARIN 7.5 MG TABLET PO SCH (14:00)
[2017-04-06] MEDS ORDERED: WARFARIN 7.5 MG TABLET PO ONE (14:00)
[2017-04-06] MEDS: traMADol 50 MG TABLET PO PRN (16:30)
[2017-04-06] MEDS: AMOXICILLIN/POTASSIUM CLAV 875 MG TABLET PO SCH ×2 (18:32→18:34)
--- NOTE | 2017-04-06 19:38 | Internal Med Progress Note ---
Medical - PN: Subj Patient information: Note initiated : 04/06/17 at 7:32 pm Service Date, if different from initiated Date: [] Patient: Will Felix 61 y/o M admitted on 04/04/17 for Actue Renal Failure, Hyperkalemia. Chief Complaint: [] Interval history: Patient seen today, he is doing well, transferred out of ICU good urine output with gradually improving renal function no SOB, has LE edema no CP, dizziness BP is not at goal, received amlodipine, hydralazine and lasix today for the same no other significant issues reported Pertinent ROS: as mentioned above - Constitutional Vitals: Vital Signs Temp Pulse Resp BP Pulse Ox 97.9 F 70 18 170/98 97 04/06/17 15:50 04/06/17 04:00 04/06/17 15:50 04/06/17 15:50 04/06/17 15:50 Period Temp Pulse Resp BP Sys/Mckeon Pulse Ox Last 24 Hr 97.4 F-98.0 F 70-71 16-20 133-182/89-104 97-99 Intake and Output 04/06/17 04/06/17 04/06/17 05:59 13:59 21:59 Intake Total 560 / 560 1920 / 1920 1320 / 1320 Output Total 1425 / 1425 1250 / 1250 1250 / 1250 Balance -865 / -865 670 / 670 70 / 70 Intake & Output: Intake & Output 04/06/17 04/06/17 04/06/17 05:59 13:59 21:59 Intake Total 560 / 560 1920 / 1920 1320 / 1320 Output Total 1425 / 1425 1250 / 1250 1250 / 1250 Balance -865 / -865 670 / 670 70 / 70 Intake: IV 1000 / 1000 Sodium Chloride 0.45% 1, 1000 / 1000 000 ml @ 75 mls/hr IV . [id number] [facility] Rx#:[id number] Oral 200 / 200 920 / 920 1320 / 1320 GI Tube Flush 360 / 360 Output: Void Amount 1425 / 1425 1250 / 1250 1250 / 1250 Other: Meal Breakfast Dinner Percent of Meal Consumed 100% 100% # Bowel Movements 1 General appearance: cooperative, obese - Eye Eye exam: Present: normal appearance - Respiratory Respiratory exam: Present: CTAB - Cardiovascular Cardiovascular exam: Present: normal rate and rhythm. Absent: rubs - GI/Abdominal GI/Abdominal exam: Present: soft. Absent: tenderness - Extremities Exam Extremities exam: Present: pedal edema - Neurological Exam Neurological exam: Present: alert, altered, oriented X3 - Psychiatric Psychiatric exam: Present: normal affect, normal mood - Skin Skin exam: Present: intact Medical - PN: Obj Da - Labs CBC & Chem 7: 04/06/17 05:30 04/06/17 05:30 Labs: Abnormal Lab Results 04/06/17 04/06/17 04/06/17 05:30 05:30 05:30 RBC 3.99 L Hgb 12.0 L Hct 36.5 L RDW 16.1 H Plt Count 127 L Eos % (Auto) 9.2 H Lymph # (Auto) 1.2 L PT 22.0 H INR 1.9 H ABG Methemoglobin VBG pCO2 VBG pO2 VBG HCO3 VBG Total CO2 VBG O2 Saturation VBG Base Excess Carboxyhemoglobin Total Hemoglobin Carbon Dioxide 19 L Anion Gap BUN 55 H Creatinine 2.8 H Glucose Calcium 7.7 L Phosphorus 4.8 H Magnesium Lactate Dehydrogenase 299 H Total Creatine Kinase Total Protein Acetaminophen 04/05/17 04/05/17 04/05/17 03:02 03:02 03:02 RBC Hgb Hct RDW Plt Count Eos % (Auto) Lymph # (Auto) PT 30.0 H INR 2.7 H ABG Methemoglobin 0.3 L VBG pCO2 34.6 L VBG pO2 120 H VBG HCO3 18.2 L VBG Total CO2 19.3 L VBG O2 Saturation 93.1 H VBG Base Excess -6.8 L Carboxyhemoglobin 3.8 H Total Hemoglobin 10.6 L Carbon Dioxide 17 L Anion Gap BUN 64 H Creatinine 3.2 H Glucose 67 L Calcium 6.8 L Phosphorus 5.4 H Magnesium 1.5 L Lactate Dehydrogenase 272 H Total Creatine Kinase Total Protein 5.7 L Acetaminophen 04/05/17 04/04/17 04/04/17 03:02 19:22 18:47 RBC 3.63 L Hgb 10.8 L Hct 32.6 L RDW 16.5 H Plt Count 118 L Eos % (Auto) 8.1 H Lymph # (Auto) 1.4 L PT INR ABG Methemoglobin VBG pCO2 VBG pO2 VBG HCO3 VBG Total CO2 VBG O2 Saturation VBG Base Excess Carboxyhemoglobin Total Hemoglobin Carbon Dioxide 17 L Anion Gap 17.0 H BUN 72 H Creatinine 3.4 H Glucose Calcium 7.1 L Phosphorus 5.2 H Magnesium 1.3 L Lactate Dehydrogenase 322 H Total Creatine Kinase Total Protein Acetaminophen < 5.0 L 04/04/17 18:47 RBC Hgb Hct RDW Plt Count Eos % (Auto) Lymph # (Auto) PT INR ABG Methemoglobin VBG pCO2 VBG pO2 VBG HCO3 VBG Total CO2 VBG O2 Saturation VBG Base Excess Carboxyhemoglobin Total Hemoglobin Carbon Dioxide Anion Gap BUN Creatinine Glucose Calcium Phosphorus Magnesium Lactate Dehydrogenase Total Creatine Kinase 248 H Total Protein Acetaminophen Meds: Medications Acetaminophen (Tylenol) 650 mg PO Q6HP PRN PRN Reason: PAIN/FEVER > 101 Allopurinol (Zylopriim) 300 mg PO DAILY [facility] Last Admin: 04/06/17 08:09 Dose: 300 mg Amlodipine Besylate (Norvasc) 5 mg PO DAILY [facility] Amoxicillin/Clavulanate Pot[facility] ([facility]in) [facility] Last Admin: 04/06/17 18:34 Dose: Not Given Aspirin (Aspirin) 81 mg PO HS [facility] Last Admin: 04/05/17 21:19 Dose: 81 mg Calcium Carbonate/Glycine (Tums) 500 mg CHEWED TIDCC [facility] Last Admin: 04/06/17 17:44 Dose: 500 mg Calcium/Vitamin D (Calcium W/Vit D3) 500 mg PO DAILY [facility] Last Admin: 04/06/17 08:09 Dose: 500 mg Carvedilol (Coreg) 25 mg PO BIDCC [facility] Last Admin: 04/06/17 16:29 Dose: 25 mg Cyclobenzaprine HCl (Flexeril) 10 mg PO Q8HP PRN PRN Reason: Pain Dextrose (Dextrose 50%) 0 ml IV UD PRN PRN Reason: Hypoglycemia Diagnostic Test (Pha) (Accu-Chek) 1 each FS ACHS [facility] Last Admin: 04/06/17 17:04 Dose: 1 each Docusate Sodium (Colace) 100 mg PO BID PRN PRN Reason: Constipation Glucose (Insta-Glucose) 15 gm PO PRN PRN PRN Reason: Hypoglycemia Sodium Chloride (Sodium Chloride 0.45%) 1,000 mls @ 75 mls/hr IV .[id number] [facility] Last Admin: 04/06/17 06:50 Dose: 75 mls/hr Insulin Human Lispro (Humalog) 0 unit SQ ACHS [facility] PRN Reason: Protocol Last Admin: 04/06/17 17:04 Dose: Not Given Iron Carb/Multivit/[place]/Folic Acid (Multivitamin W/Minerals) 1 tab PO DAILY [facility] Last Admin: 04/06/17 08:09 Dose: 1 tab Magnesium Hydroxide (Milk Of Magnesia) 30 ml PO DAILYP PRN PRN Reason: Constipation Ondansetron HCl (Zofran) 4 mg IV Q4HP PRN PRN Reason: Nausea And Vomiting Simvastatin (Zocor) 40 mg PO HS [facility] Last Admin: 04/05/17 21:19 Dose: 40 mg Sodium Bicarbonate (Sodium Bicarbonate) 650 mg PO BID [facility] Last Admin: 04/06/17 08:09 Dose: 650 mg Tramadol HCl (Ultram) 50 - 100 mg PO Q6HP PRN PRN Reason: Pain Last Admin: 04/06/17 16:30 Dose: 100 mg Warfarin Sodium (Coumadin) 3.75 mg PO MoWe@1400 [facility] Warfarin Sodium (Coumadin Per Pharmacy) 1 order PO DAILY@1400 [facility] Last Admin: 04/06/17 13:52 Dose: 1 order - ABG Interpretation ABG results: 04/05/17 03:02 ABG Methemoglobin 0.3 L VBG pH 7.34 VBG pCO2 34.6 L VBG pO2 120 H VBG HCO3 18.2 L VBG Total CO2 19.3 L VBG O2 Saturation 93.1 H VBG Base Excess -6.8 L Medical - PN: A/P - Time Spent With Patient Total time spent is greater than 50% in coordination of care (as documented) at patient's floor/unit and/or counseling patient: (1) ARF (acute renal failure) Status: Acute Assessment and plan: acute renal failure likely ATN from hypotension in the setting of use of ACEI, NSAIDS and diuretics renal US done at [facility] is negative for obstructive etiology UA is normal with no protienuria and no hematuria good urine output, slowly improving renal function metabolic acidosis from JABIER, improving Mild hypocalcemia, hypomagnsemia and hyperphosphatemia related to JABIER and use of diuretics anemia: improving as well h/o HTN/CHF: stable plan: will start the patient on amlodipine for uncontrolled HTN will d/c IVF tonight ct coreg and may restart lasix at 20mg po daily (he burton shave + edema) may discharge home if renal function continues to improve and serum electrolytes are not an issues please do not restart lisinopril on discharge, also pt given instructions for the same advised to ensure no NSAIDS stay well hydrated advised to recheck labs and follow with me next saturday call if any concerns, please provide nephrology office contact information in case needed Thank you for giving me an opportunity to participate in Mr Felix's medical care , appreciate it Current Visit: Yes (2) Acidosis, metabolic Status: Acute Current Visit: Yes Medical - PN: Qual - VTE Deep Vein Thrombosis/Pulmonary Embolism Present on Admission: No
[2017-04-06] MEDS ORDERED: CARVEDILOL 12.5 MG TABLET PO SCH (20:15)
[2017-04-06] MEDS: SIMVASTATIN 40 MG TABLET PO SCH (20:24)
[2017-04-06] MEDS: ASPIRIN 81 MG TAB.CHEW PO SCH (20:24)
[2017-04-06] MEDS: ONDANSETRON 4 MG/2 ML VIAL IV PRN (21:25)
[2017-04-06] MEDS ORDERED: cloNIDine HCL 0.1 MG TABLET PO SCH (22:15)
[2017-04-06] MEDS ORDERED: cloNIDine HCL 0.1 MG TABLET ONE (22:35)
[2017-04-07] MEDS: traMADol 50 MG TABLET PO PRN (02:26)
[2017-04-07 05:30] LABS: Basophils # (Auto) 0.1 K/mcL (0.0-0.3); Basophils % (Auto) 1.3 % (0.0-2.0); Eosinophils # (Auto) 0.3 K/mcL (0.0-0.7); Eosinophils % (Auto) 6.2 % (0.0-7.0); Granulocytes % (Auto) 65.6 % (38.0-78.0); Lymphocytes # (Auto) 0.9 K/mcL (1.5-4.8); Mean Cell Volume 90.6 fL (80.0-100.0); Mean Corpuscular HGB Conc 33.5 g/dL (31.0-36.0); Mean Corpuscular Hemoglobin 30.3 pg (26.0-34.0); Monocytes # (Auto) 0.5 K/mcL (0.1-0.9); Monocytes % (Auto) 9.9 % (1.0-12.0); Platelet Count 116 K/mcL (140-440); RBC 3.65 M/mcL (4.50-5.90); Red Cell Distribution Width 16.4 % (11.5-14.5)
[2017-04-07 06:00] LABS: ALT/SGPT 24 U/l (0-40); Albumin 3.6 gm/dL (3.2-5.2); Albumin/Globulin Ratio 1.3 (1.0-2.3); Alkaline Phosphatase 83 U/L (39-117); Bilirubin,Direct < 0.2 mg/dL (0.0-0.3); Blood Urea Nitrogen 49 mg/dl (8-23); Gamma Glutamyl Transpeptidase 26 U/L (8-61); Magnesium 1.5 mg/dL (1.6-2.5); Uric Acid 4.7 mg/dL (2.5-8.0)
[2017-04-07] MEDS: amLODIPine 5 MG TABLET PO SCH (08:39)
[2017-04-07] MEDS: CARVEDILOL 12.5 MG TABLET PO SCH ×2 (08:40→17:54)
[2017-04-07] MEDS: AMOXICILLIN/POTASSIUM CLAV 875 MG TABLET PO SCH (08:42)
[2017-04-07] MEDS: ALLOPURINOL 300 MG TABLET PO SCH (08:42)
[2017-04-07] MEDS: CALCIUM CARBONATE 500 MG TAB.CHEW CHEWED SCH ×4 (08:45→17:55)
[2017-04-07] MEDS: INSULIN LISPRO 1 UNIT/0.01 ML UNIT SQ SCH ×4 (08:45→20:16)
[2017-04-07] MEDS: ONDANSETRON 4 MG/2 ML VIAL IV PRN (10:05)
[2017-04-07] MEDS ORDERED: 0.45 % SODIUM CHLORIDE 1,000 ML IV SCH (10:30)
[2017-04-07] MEDS: MULTIVIT,THER IRON,CA,FA & MIN 1 TABLET PO SCH (13:39)
[2017-04-07] MEDS: CALCIUM W/VIT D3 500 MG TABLET PO SCH (13:40)
[2017-04-07] MEDS ORDERED: FUROSEMIDE 20 MG/2 ML VIAL IV ONE (13:40)
[2017-04-07] MEDS: SODIUM BICARBONATE 650 MG TABLET PO SCH ×2 (13:40→20:14)
[2017-04-07] MEDS ORDERED: WARFARIN 5 MG TABLET PO ONE (14:00)
[2017-04-07 16:59] LABS: Blood Urea Nitrogen 45 mg/dl (8-23)
--- NOTE | 2017-04-07 18:00 | Internal Med Progress Note ---
Medical - PN: Subj Patient information: Note initiated : 04/07/17 at 5:57 pm Service Date, if different from initiated Date: [] Patient: Will Felix 61 y/o M admitted on 04/04/17 for Actue Renal Failure, Hyperkalemia. Chief Complaint: [] Interval history: April 04, 2017: History of present illness: Mr. Felix is a 61 year old man who presented to [facility] yesterday, complaining of lightheadedness. He notes that he has not been feeling very well for about 2 weeks, and has noted feeling somewhat lightheaded with slight head and neck ache, upper back discomfort, and generally feeling unwell whenever he goes out in the heat and tries to do things like chop wood. He says his symptoms resolve almost immediately once he gets out of the heat. He does have a history of coronary disease, and says he occasionally has some chest discomfort, but it never lasts. Yesterday something happened with his truck, and while he was out of the truck leaning underneath to have a look, he had slightly sharp left-sided chest discomfort and felt a little short of breath. This again resolved once he got back in the truck. He says he only occasionally has dyspnea with exertion, and denies any orthopnea. He has been having some mild heartburn for the last several days, which is unusual for him. He has not had any dysuria lately. He says he has been drinking lots of fluids to stay hydrated. He does take occasional ibuprofen, 200 mg, maybe twice a week for aches and pains. He also uses occasional topical Voltaren gel, for aching neck, but again not very often. He says he thought that it was just time to hold his doxazosin again, as he has had lightheadedness in the past related to that, which resolved when it was stopped. Evaluation showed acute renal failure associated with severe hyperkalemia. The patient was given IV fluids overnight, in addition to Kayexalate, albuterol , potassium and insulin. BUN and creatinine are improved today, but potassium continues to rise. He is now transferred here so that he can have access to nephrology consultation and possible dialysis. April 05: The patient says he is feeling pretty well today. He denies any more lightheadedness or blurry vision. He says he is eating and drinking well. He denies chest pain or palpitations, shortness of breath, abdominal pain, nausea vomiting or diarrhea. He told the axle inspector today that his blood pressure had dropped into the 80s at times at home. Labs this morning, show continued improvement in BUN, creatinine, potassium, acidosis. -Oxygen was monitored overnight, and he did not show signs of desaturation even though he did not have his CPAP with him. April 06: -Today, the patient says he is feeling fine. He has been ambulating in the hallways, and is getting anxious to go home. -Otherwise, blood pressures were quite elevated overnight. He blames it on having a lot of pain in his right lower jaw tooth. He has been having tooth pain for a number of weeks now. -Otherwise, he denies fever or chills. He notes he was having some mild abdominal bloating, but that was relieved after he had a bowel movement. He denies chest pain or palpitations, shortness of breath, nausea or vomiting, diarrhea, dysuria. April 07: Yesterday, the patient was having symptoms of an abscessed tooth, so I started him on Augmentin. He reports that after the first dose of Augmentin he vomited , and then he vomited again this morning after taking Augmentin. He says once he vomits, he feels fine, and then can eat his food. Augmentin was discontinued , and he was switched to oral penicillin this afternoon. Unfortunately, his potassium bounced back up to 5.3 this morning. He was given some IV fluids, and then IV Lasix, and then we recheck the potassium this evening. It remains at 5.3. I reviewed this with Dr. Callaway, and she suggested we give him Kayexalate, and keep him in the hospital so that we can recheck things in the morning. He is on a beta-gayatri, which can increase potassium, but he has been on that for a long time, and in addition was previously on both a potassium supplement and an KYLE inhibitor. Otherwise, the patient says he has not had fever or chills, sore throat or cough , chest pain or palpitations or shortness of breath. He denies abdominal pain diarrhea or constipation, or dysuria. - Constitutional Vitals: Vital Signs Temp Pulse Resp BP Pulse Ox 97.7 F 70 16 141/85 99 04/07/17 15:33 04/07/17 04:10 04/07/17 15:33 04/07/17 15:33 04/07/17 15:33 Period Temp Pulse Resp BP Sys/Mckeon Pulse Ox Last 24 Hr 97.4 F-97.7 F 70-73 16-18 119-164/80-104 96-99 Intake and Output 04/07/17 04/07/17 04/07/17 05:59 13:59 21:59 Intake Total 200 / 200 180 / 180 800 / 800 Output Total 725 / 725 700 / 700 1300 / 1300 Balance -525 / -525 -520 / -520 -500 / -500 Intake & Output: Intake & Output 04/07/17 04/07/17 04/07/17 05:59 13:59 21:59 Intake Total 200 / 200 180 / 180 800 / 800 Output Total 725 / 725 700 / 700 1300 / 1300 Balance -525 / -525 -520 / -520 -500 / -500 Intake: Oral 200 / 200 180 / 180 800 / 800 Output: Void Amount 625 / 625 700 / 700 1300 / 1300 Emesis 100 / 100 Other: Meal Breakfast Percent of Meal Consumed 100% On exam, he is otherwise in no acute distress. Neck is supple without obvious JVD. Cardiac exam shows regular rate and rhythm. Lungs are clear to auscultation. Abdomen is soft and nontender. Extremities continue to show about 2+ edema to mid calf. Neurologic exam is nonfocal. Medical - PN: Obj Da - Labs CBC & Chem 7: 04/07/17 04:40 04/07/17 16:05 Labs: Abnormal Lab Results 04/07/17 04/07/17 04/07/17 16:05 04:40 04:40 RBC Hgb Hct RDW Plt Count Eos % (Auto) Lymph # (Auto) PT 25.5 H INR 2.2 H ABG Methemoglobin VBG pCO2 VBG pO2 VBG HCO3 VBG Total CO2 VBG O2 Saturation VBG Base Excess Carboxyhemoglobin Total Hemoglobin Potassium 5.3 H 5.3 H Carbon Dioxide Anion Gap BUN 45 H 49 H Creatinine 2.4 H 2.6 H Glucose 147 H Calcium 8.2 L 8.0 L Phosphorus 5.0 H Magnesium 1.5 L Lactate Dehydrogenase 262 H Total Creatine Kinase Total Protein Acetaminophen 07/30/17 07/29/17 07/29/17 04:40 05:30 05:30 RBC 3.65 L Hgb 11.1 L Hct 33.0 L RDW 16.4 H Plt Count 116 L Eos % (Auto) Lymph # (Auto) 0.9 L PT 22.0 H INR 1.9 H ABG Methemoglobin VBG pCO2 VBG pO2 VBG HCO3 VBG Total CO2 VBG O2 Saturation VBG Base Excess Carboxyhemoglobin Total Hemoglobin Potassium Carbon Dioxide 19 L Anion Gap BUN 55 H Creatinine 2.8 H Glucose Calcium 7.7 L Phosphorus 4.8 H Magnesium Lactate Dehydrogenase 299 H Total Creatine Kinase Total Protein Acetaminophen 04/06/17 04/05/17 04/05/17 05:30 03:02 03:02 RBC 3.99 L Hgb 12.0 L Hct 36.5 L RDW 16.1 H Plt Count 127 L Eos % (Auto) 9.2 H Lymph # (Auto) 1.2 L PT INR ABG Methemoglobin 0.3 L VBG pCO2 34.6 L VBG pO2 120 H VBG HCO3 18.2 L VBG Total CO2 19.3 L VBG O2 Saturation 93.1 H VBG Base Excess -6.8 L Carboxyhemoglobin 3.8 H Total Hemoglobin 10.6 L Potassium Carbon Dioxide 17 L Anion Gap BUN 64 H Creatinine 3.2 H Glucose 67 L Calcium 6.8 L Phosphorus 5.4 H Magnesium 1.5 L Lactate Dehydrogenase 272 H Total Creatine Kinase Total Protein 5.7 L Acetaminophen 04/05/17 04/05/17 04/04/17 03:02 03:02 19:22 RBC 3.63 L Hgb 10.8 L Hct 32.6 L RDW 16.5 H Plt Count 118 L Eos % (Auto) 8.1 H Lymph # (Auto) 1.4 L PT 30.0 H INR 2.7 H ABG Methemoglobin VBG pCO2 VBG pO2 VBG HCO3 VBG Total CO2 VBG O2 Saturation VBG Base Excess Carboxyhemoglobin Total Hemoglobin Potassium Carbon Dioxide 17 L Anion Gap 17.0 H BUN 72 H Creatinine 3.4 H Glucose Calcium 7.1 L Phosphorus 5.2 H Magnesium 1.3 L Lactate Dehydrogenase 322 H Total Creatine Kinase Total Protein Acetaminophen 04/04/17 04/04/17 18:47 18:47 RBC Hgb Hct RDW Plt Count Eos % (Auto) Lymph # (Auto) PT INR ABG Methemoglobin VBG pCO2 VBG pO2 VBG HCO3 VBG Total CO2 VBG O2 Saturation VBG Base Excess Carboxyhemoglobin Total Hemoglobin Potassium Carbon Dioxide Anion Gap BUN Creatinine Glucose Calcium Phosphorus Magnesium Lactate Dehydrogenase Total Creatine Kinase 248 H Total Protein Acetaminophen < 5.0 L April 05: CBC: Hemoglobin 10.8, hematocrit 32.6, RDW 16.5, platelets low at 118,000. Differential shows 8100 eosinophils -INR is within range at 2.7 Venous blood gas shows pH of 7.34, PCO2 of 34, PO2 of 120, bicarb of 18, Chemistry panel: Shows potassium 5.0, bicarbonate 17, BUN 64, creatinine 3.2, glucose 67, calcium 6.8, albumin 3.4, phosphorus elevated at 5.4, magnesium low at 1.5 April 04: MRSA screen is negative. Labs from [place]: April 03: Chemistry panel: Sodium 140, potassium 6.0, chloride 113, bicarb 15, anion gap 12, creatinine 4.65 April 04: Sodium 142, potassium 5.5, chloride 116, bicarb 16, anion gap 10, BUN 77, creatinine 3.97, glucose 74 Calcium 7.4 LFTs normal Troponin less than 0.06 Pro time is 35 with INR of 3.5 CBC shows white blood cell count 5.8, hemoglobin 11.6, hematocrit 36, MCV 90, RDW 15. Differential shows 8.6% eosinophils, absolute monocyte count of 590, with normal 100-400. CPK is elevated at 263 Renal ultrasound shows echogenic kidneys suggesting medical renal disease, no hydronephrosis Troponin is normal at less than 0.06 Urinalysis shows pH of 5.5, specific gravity 1.015, negative protein, negative ketones, trace blood, negative nitrites, rare red blood cell Random urine sodium is 70 Random creatinine is 64 Venous blood gas: PH 7.23 (7.3-7.4), PCO2 41, PO2 51, bicarb 17 (24-30), O2 saturation 78% EKG was paced. Meds: Medications Acetaminophen (Tylenol) 650 mg PO Q6HP PRN PRN Reason: PAIN/FEVER > 101 Allopurinol (Zylopriim) 300 mg PO DAILY [facility] Last Admin: 04/07/17 08:42 Dose: 300 mg Amlodipine Besylate (Norvasc) 5 mg PO DAILY [facility] Last Admin: 04/07/17 08:39 Dose: 5 mg Aspirin (Aspirin) 81 mg PO HS [facility] Last Admin: 04/06/17 20:24 Dose: 81 mg Calcium Carbonate/Glycine (Tums) 500 mg CHEWED TIDCC [facility] Last Admin: 04/07/17 17:55 Dose: 500 mg Calcium/Vitamin D (Calcium W/Vit D3) 500 mg PO DAILY [facility] Last Admin: 04/07/17 13:40 Dose: Not Given Carvedilol (Coreg) 25 mg PO BIDCC [facility] Last Admin: 04/07/17 17:54 Dose: 25 mg Cyclobenzaprine HCl (Flexeril) 10 mg PO Q8HP PRN PRN Reason: Pain Dextrose (Dextrose 50%) 0 ml IV UD PRN PRN Reason: Hypoglycemia Diagnostic Test (Pha) (Accu-Chek) [address] [facility] Last Admin: 04/07/17 17:53 Dose: 1 each Docusate Sodium (Colace) 100 mg PO BID PRN PRN Reason: Constipation Glucose (Insta-Glucose) 15 gm PO PRN PRN PRN Reason: Hypoglycemia Insulin Human Lispro (Humalog) 0 unit SQ [facility] PRN Reason: Protocol Last Admin: 04/07/17 17:53 Dose: Not Given Iron Carb/Multivit/Rowan/Folic Acid (Multivitamin W/Minerals) 1 tab PO DAILY [facility] Last Admin: 04/07/17 13:39 Dose: Not Given Magnesium Hydroxide (Milk Of Magnesia) 30 ml PO DAILYP PRN PRN Reason: Constipation Ondansetron HCl (Zofran) 4 mg IV Q4HP PRN PRN Reason: Nausea And Vomiting Last Admin: 04/07/17 10:05 Dose: 4 mg Penicillin V Potassium (Penicillin Vk (Pp)) 500 mg PO Q6H [facility] Simvastatin (Zocor) 40 mg PO [facility] Last Admin: 04/06/17 20:24 Dose: 40 mg Sodium Bicarbonate (Sodium Bicarbonate) 650 mg PO BID [facility] Last Admin: 04/07/17 13:40 Dose: Not Given Tramadol HCl (Ultram) 50 - 100 mg PO Q6HP PRN PRN Reason: Pain Last Admin: 04/07/17 02:26 Dose: 50 mg Warfarin Sodium (Coumadin) 3.75 mg PO MoWe@1400 [facility] Warfarin Sodium (Coumadin Per Pharmacy) 1 order PO DAILY@1400 [facility] Last Admin: 04/07/17 14:53 Dose: 1 order - ABG Interpretation ABG results: 04/05/17 03:02 ABG Methemoglobin 0.3 L VBG pH 7.34 VBG pCO2 34.6 L VBG pO2 120 H VBG HCO3 18.2 L VBG Total CO2 19.3 L VBG O2 Saturation 93.1 H VBG Base Excess -6.8 L Medical - PN: A/P - Time Spent With Patient Total time spent is greater than 50% in coordination of care (as documented) at patient's floor/unit and/or counseling patient: Greater than 35 minutes (1) ARF (acute renal failure) Status: Acute Current Visit: Yes (2) Acute hyperkalemia Status: Acute Current Visit: Yes (3) Acidosis, metabolic Status: Acute Current Visit: Yes (4) Elevated INR Status: Acute Current Visit: Yes (5) Coronary artery disease Status: Chronic Current Visit: Yes (6) Type 2 diabetes mellitus Status: Chronic Current Visit: Yes (7) Hypertension Status: Chronic Current Visit: Yes (8) Sleep apnea in adult Status: Chronic Current Visit: Yes (9) Atrial fibrillation Status: Resolved Current Visit: Yes (10) Pacemaker Status: Chronic Current Visit: Yes (11) AICD (automatic cardioverter/defibrillator) present Status: Chronic Current Visit: Yes (12) Morbid obesity Status: Chronic Current Visit: Yes (13) Gout Status: Chronic Current Visit: Yes (14) GERD (gastroesophageal reflux disease) Status: Acute Current Visit: Yes (15) Asthma Status: Chronic Current Visit: Yes (16) Dental abscess Status: Acute Current Visit: Yes - Narrative A/P Narrative: #1 renal. Apparent acute renal failure, likely at least partially due to dehydration and working out in the heat. He was on several medications that could cause issues , including his as needed ibuprofen, topical Voltaren, allopurinol, lisinopril, colchicine. BUN and creatinine continue to improve, but potassium remained elevated this morning. He was given a brief run of IV fluids, which were discontinued, and then IV Lasix. Repeat potassium this evening, however, remains elevated. His Coreg could potentially increase his potassium, but he has been on that for a long time, in addition to an KYLE inhibitor and a potassium supplement. Presumably his acute renal dysfunction is still contributing to poor potassium clearance. He was also started on Augmentin last night, which may be playing a role. -This was reviewed with Dr. Callaway, and she suggested giving him Kayexalate, and recheck in the morning. -Metabolic acidosis. Improved.. Nephrology added bicarbonate and Tums. Serum bicarb and anion gap are back to normal. Continue to monitor. 2. Hypertension. Blood pressures have been running quite high overnight. The patient blames this at least partly on his tooth pain. Pressures today have been close to normal. He did receive 1 dose of clonidine last night. He is now on daily dose amlodipine, in addition to Coreg. He also has received pain medication for his tooth, and his tooth pain is much improved. -Lisinopril remains on hold. He did receive 1 dose of Lasix today. 3. Cardiac. Patient has history of coronary artery disease, stents, atrial fibrillation, pacemaker and AICD. -He does not appear to have had a a recent cardiac event, and certainly reports no symptoms that are really consistent with that. There is a chance that he is developed heart failure and/or hypotension, causing acute renal failure due to hypoperfusion. -Continue Coreg, aspirin. Amlodipine.. . warfarin as needed, to keep INR between 2 and 3. -Resume statin, KYLE, aspirin as tolerated. 4. Endocrine. -Type 2 diabetes. Accu-Cheks ranging from 82-173. -Sliding scale insulin, Accu-Cheks. 5. CODE STATUS: Patient requests full code. 6. DVT prophylaxis: He is anticoagulated at this time. Management of Coumadin per pharmacy. 7. Pulmonary. History of sleep apnea, although the patient says it is very mild. He did fine overnight without CPAP. -Reported history of asthma. Albuterol as needed. 8. History of morbid obesity, status post bypass. Continue vitamin supplements. 9. History of gout. -Hold colchicine. Resume allopurinol. 10. GI. Recent GERD. Add Tums as needed. 11. Dental. The patient has a very painful tooth in his right lower jaw, and may well have an underlying dental abscess. Pain is much improved today, after starting antibiotics. Patient hopes to follow-up with the [facility]. Augmentin was changed to penicillin today, to see if his stomach can tolerate this better. Approximately 40 minutes was spent so far today, reviewing patient's test results, interviewing and examining him twice, touching base with nephrology, and writing orders. Medical - PN: Qual - VTE Deep Vein Thrombosis/Pulmonary Embolism Present on Admission: No
[2017-04-07] MEDS ORDERED: SODIUM POLYSTYRENE SULFONATE 15 GM/60 ML SUSPENSION PO ONE (18:34)
[2017-04-07] MEDS: SIMVASTATIN 40 MG TABLET PO SCH (20:14)
[2017-04-07] MEDS: ASPIRIN 81 MG TAB.CHEW PO SCH (20:14)
[2017-04-07] MEDS ORDERED: PENICILLIN VK 250 MG TABLET PO ONE (21:15)
[2017-04-07] MEDS: PENICILLIN VK 250 MG PO SCH (21:15)
[2017-04-08] MEDS: PENICILLIN VK 250 MG PO SCH ×2 (01:20→06:33)
[2017-04-08 05:49] LABS: Basophils # (Auto) 0 K/mcL (0.0-0.3); Basophils % (Auto) 0.8 % (0.0-2.0); Eosinophils # (Auto) 0.5 K/mcL (0.0-0.7); Eosinophils % (Auto) 8.7 % (0.0-7.0); Granulocytes % (Auto) 58.1 % (38.0-78.0); Lymphocytes # (Auto) 1.3 K/mcL (1.5-4.8); Lymphocytes % (Auto) 21.6 % (15.5-49.0); Mean Cell Volume 90.8 fL (80.0-100.0); Mean Corpuscular HGB Conc 33.3 g/dL (31.0-36.0); Mean Corpuscular Hemoglobin 30.2 pg (26.0-34.0); Monocytes # (Auto) 0.7 K/mcL (0.1-0.9); Monocytes % (Auto) 10.8 % (1.0-12.0); Platelet Count 124 K/mcL (140-440); RBC 3.84 M/mcL (4.50-5.90); Red Cell Distribution Width 16.1 % (11.5-14.5)
[2017-04-08 06:16] LABS: ALT/SGPT 27 U/l (0-40); Albumin 3.7 gm/dL (3.2-5.2); Albumin/Globulin Ratio 1.3 (1.0-2.3); Alkaline Phosphatase 88 U/L (39-117); Bilirubin,Direct < 0.2 mg/dL (0.0-0.3); Blood Urea Nitrogen 39 mg/dl (8-23); Gamma Glutamyl Transpeptidase 27 U/L (8-61); Magnesium 1.4 mg/dL (1.6-2.5); Uric Acid 4.5 mg/dL (2.5-8.0)
[2017-04-08] MEDS: WARFARIN 7.5 MG TABLET PO SCH (07:06)
[2017-04-08 07:18] LABS: ALT/SGPT 26 U/l (0-40); Albumin 3.5 gm/dL (3.2-5.2); Albumin/Globulin Ratio 1.3 (1.0-2.3); Alkaline Phosphatase 84 U/L (39-117); Bilirubin,Direct < 0.2 mg/dL (0.0-0.3); Blood Urea Nitrogen 39 mg/dl (8-23); Gamma Glutamyl Transpeptidase 26 U/L (8-61); Magnesium 1.4 mg/dL (1.6-2.5); Uric Acid 4.5 mg/dL (2.5-8.0)
[2017-04-08] MEDS: CALCIUM CARBONATE 500 MG TAB.CHEW CHEWED SCH ×2 (07:49→11:27)
[2017-04-08] MEDS: CARVEDILOL 12.5 MG TABLET PO SCH (07:49)
[2017-04-08] MEDS: INSULIN LISPRO 1 UNIT/0.01 ML UNIT SQ SCH ×2 (07:50→12:17)
[2017-04-08] MEDS: MULTIVIT,THER IRON,CA,FA & MIN 1 TABLET PO SCH (09:39)
[2017-04-08] MEDS: SODIUM BICARBONATE 650 MG TABLET PO SCH (09:39)
[2017-04-08] MEDS: amLODIPine 5 MG TABLET PO SCH (09:39)
[2017-04-08] MEDS: CALCIUM W/VIT D3 500 MG TABLET PO SCH (09:39)
[2017-04-08] MEDS: ALLOPURINOL 300 MG TABLET PO SCH (09:39)
[2017-04-08] MEDS: PENICILLIN VK 250 MG TABLET PO SCH ×2 (11:28→12:58)
--- NOTE | 2017-04-08 12:47 | Discharge Summary ---
Medical - DS: Prov Patient information: Note initiated : 04/08/17 at 12:41 pm Patient: Will Felix 61 y/o M admitted on 04/04/17 for Actue Renal Failure, Hyperkalemia. Date of admission: 04/04/17 17:22 Discharge date: 04/08/17 Primary care physician: Renae Bailey Admitting clinician: Tanika Gonzalez Consults: 04/04/17 18:06 Consult to Physician [CONS] Routine Comment: or nephrol contract accountant; ARF, hyperkalemia Consulting Provider: Helen Callaway Reason For Exam: Physician to Consult Attending physician on discharge: Tanika Gonzalez Medical - DS: Meds - Discharge Medications Prescriptions: amLODIPine [Norvasc] 5 mg PO DAILY #30 tablet Penicillin Vk 500 mg PO QID #28 tablet Active and Home Medications: Discharge medications: Penicillin 500 mg p.o. 4 times daily 7 more days. Or until teeth are pulled. Amlodipine 5 mg p.o. daily Allopurinol 300 mg daily Aspirin 81 mg daily Warfarin 3.75 mg and 7.5 mg, per usual schedule. Coreg 25 mg p.o. twice daily Flexeril 10 mg every 8 hours as needed Tramadol 50 mg every 6 hours as needed Pravastatin 80 mg nightly Multivitamin daily Lasix 20 mg p.o. daily Calcium plus D5 112181 daily Stop taking ibuprofen, lisinopril, potassium, colchicine, doxazosin. Use Voltaren gel sparingly, for now. Previous home Medications: Allopurinol [Zylopriim] 300 mg PO DAILY 04/04/17 [History Confirmed 04/04/17 Last Taken 04/04/17] Aspirin [Lo-Dose Aspirin EC] 81 mg PO QHS 04/04/17 [History Confirmed 04/04/17 Last Taken 04/03/17] Calcium Carbonate/Vitamin D3 [Os-Agustín 500+D3 Caplet] 1 each PO DAILY 04/04/17 [ History Confirmed 04/04/17 Last Taken 04/03/17] Carvedilol [Coreg] 25 mg PO BID 04/04/17 [History Confirmed 04/04/17 Last Taken 04/04/17] Colchicine [Colcrys] 0.6 mg PO DAILY 04/04/17 [History Confirmed 04/04/17 Last Taken 04/04/17] Cyclobenzaprine [Flexeril] 10 mg PO Q8H PRN 04/04/17 [History Confirmed Last Taken 04/03/17] Diclofenac Sodium [Voltaren] 100 gm TP PRN PRN 04/04/17 [History Confirmed 04/04 Last Taken Unknown] Doxazosin [Cardura] 4 mg PO DAILY 04/04/17 [History Confirmed 04/04/17 Last Taken 04/01/17] Furosemide [Lasix] 20 mg PO DAILY 04/04/17 [History Confirmed 04/04/17 Last Taken 04/02/17] Ibuprofen [I-Prin] 200 - 400 mg PO Q4HP PRN 04/04/17 [History Confirmed Last Taken Unknown] Lisinopril [Zestril] 20 mg PO QHS 04/04/17 [History Confirmed 04/04/17 Last Taken 04/03/17] Mv-Mn/FA/Coq10/Lycopene/Lutein [Theragran-M Premier 50+ Caplet] 1 each PO DAILY 04/04/17 [History Confirmed 04/04/17 Last Taken 04/02/17] Potassium Chloride [Kdur] 10 meq PO DAILY 04/04/17 [History Confirmed 04/04/17 Last Taken 04/02/17] Pravastatin Sodium [Pravachol] 80 mg PO QHS 04/04/17 [History Confirmed Last Taken 04/03/17] Warfarin Sodium [Jantoven] 3.75 mg PO DAILY 04/04/17 [History Confirmed Last Taken 04/03/17] Warfarin Sodium [Jantoven] 7.5 mg PO DAILY 04/04/17 [History Confirmed 04/04/17 Last Taken 04/04/17] traMADol HCL [Ultram] 50 - 100 mg PO Q6HP PRN 04/04/17 [History Confirmed Last Taken Unknown] Medical - DS: Hosp Hospital course: Mr. Felix is a 61 year old M April 04, 2017: History of present illness: Mr. Felix is a 61 year old man who presented to [facility] yesterday, complaining of lightheadedness. He notes that he has not been feeling very well for about 2 weeks, and has noted feeling somewhat lightheaded with slight head and neck ache, upper back discomfort, and generally feeling unwell whenever he goes out in the heat and tries to do things like chop wood. He says his symptoms resolve almost immediately once he gets out of the heat. He does have a history of coronary disease, and says he occasionally has some chest discomfort, but it never lasts. Yesterday something happened with his truck, and while he was out of the truck leaning underneath to have a look, he had slightly sharp left-sided chest discomfort and felt a little short of breath. This again resolved once he got back in the truck. He says he only occasionally has dyspnea with exertion, and denies any orthopnea. He has been having some mild heartburn for the last several days, which is unusual for him. He has not had any dysuria lately. He says he has been drinking lots of fluids to stay hydrated. He does take occasional ibuprofen, 200 mg, maybe twice a week for aches and pains. He also uses occasional topical Voltaren gel, for aching neck, but again not very often. He says he thought that it was just time to hold his doxazosin again, as he has had lightheadedness in the past related to that, which resolved when it was stopped. Evaluation showed acute renal failure associated with severe hyperkalemia. The patient was given IV fluids overnight, in addition to Kayexalate, albuterol , potassium and insulin. BUN and creatinine are improved today, but potassium continues to rise. He is now transferred here so that he can have access to nephrology consultation and possible dialysis. April 05: The patient says he is feeling pretty well today. He denies any more lightheadedness or blurry vision. He says he is eating and drinking well. He denies chest pain or palpitations, shortness of breath, abdominal pain, nausea vomiting or diarrhea. 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 Labs this morning, show continued improvement in BUN, creatinine, potassium, acidosis. -Oxygen was monitored overnight, and he did not show signs of desaturation even though he did not have his CPAP with him. April 06: -Today, the patient says he is feeling fine. He has been ambulating in the hallways, and is getting anxious to go home. -Otherwise, blood pressures were quite elevated overnight. He blames it on having a lot of pain in his right lower jaw tooth. He has been having tooth pain for a number of weeks now. -Otherwise, he denies fever or chills. He notes he was having some mild abdominal bloating, but that was relieved after he had a bowel movement. He denies chest pain or palpitations, shortness of breath, nausea or vomiting, diarrhea, dysuria. April 07: Yesterday, the patient was having symptoms of an abscessed tooth, so I started him on Augmentin. He reports that after the first dose of Augmentin he vomited , and then he vomited again this morning after taking Augmentin. He says once he vomits, he feels fine, and then can eat his food. Augmentin was discontinued , and he was switched to oral penicillin this afternoon. Unfortunately, his potassium bounced back up to 5.3 this morning. He was given some IV fluids, and then IV Lasix, and then we recheck the potassium this evening. It remains at 5.3. I reviewed this with Dr. Callaway, and she suggested we give him Kayexalate, and keep him in the hospital so that we can recheck things in the morning. He is on a beta-gayatri, which can increase potassium, but he has been on that for a long time, and in addition was previously on both a potassium supplement and an KYLE inhibitor. Otherwise, the patient says he has not had fever or chills, sore throat or cough , chest pain or palpitations or shortness of breath. He denies abdominal pain diarrhea or constipation, or dysuria. April 08: Today, the patient says he is feeling much better. He is tolerating the oral penicillin, and has not had further nausea and vomiting. His tooth pain is also much improved. He is eating and drinking well. Denies fever or chills, chest pain or shortness of breath, GI or symptoms. He is anxious to return home. On exam, he is awake and alert, and smiling. A family member is visiting. Neck is supple without obvious JVD. Cardiac exam shows regular rate and rhythm. Lungs are clear to auscultation. Abdomen is soft and nontender. Extremities: Continue to show about 2+ edema to mid calf. A/P Narrative: #1 renal. Apparent acute renal failure, likely at least partially due to dehydration and working out in the heat. He was on several medications that could cause issues , including his as needed ibuprofen, topical Voltaren, allopurinol, lisinopril, colchicine. -Metabolic acidosis. Improved.. Nephrology added bicarbonate and Tums. Serum bicarb and anion gap are back to normal. Continue to monitor. -Potassium is back to normal this morning, after receiving a dose of Kayexalate yesterday. BUN and creatinine are once again improved today. 2. Hypertension. Blood pressures intermittently ran quite high during his stay, but over the last 24 hours have improved. He is now on daily dose amlodipine, in addition to Coreg. He also has received pain medication for his tooth, and his tooth pain is much improved. -Lisinopril remains on hold. . 3. Cardiac. Patient has history of coronary artery disease, stents, atrial fibrillation, pacemaker and AICD. -He does not appear to have had a a recent cardiac event, and certainly reports no symptoms that are really consistent with that. There is a chance that he is developed heart failure and/or hypotension, causing acute renal failure due to hypoperfusion. -Continue Coreg, aspirin. Amlodipine.. . warfarin as needed, to keep INR between 2 and 3. -Resume statin, KYLE, aspirin as tolerated. 4. Endocrine. -Type 2 diabetes. Controlled, Accu-Cheks ranging from 85-95 today. 5. CODE STATUS: Patient requests full code. 6. DVT prophylaxis: He is anticoagulated at this time. Management of Coumadin was per pharmacy. 7. Pulmonary. History of sleep apnea, although the patient says it is very mild. He did fine overnight without CPAP. -Reported history of asthma. Albuterol as needed. 8. History of morbid obesity, status post bypass. Continue vitamin supplements. 9. History of gout. -Hold colchicine. Resume allopurinol. 10. GI. Recent GERD. Add Tums as needed. 11. Dental. The patient has a very painful tooth in his right lower jaw, and may well have an underlying dental abscess. Pain is much improved today, after starting antibiotics. Patient hopes to follow-up with the [facility], to get a referral to a dentist.. Augmentin was changed to penicillin , to see if his stomach can tolerate this better. Approximately 40 minutes was spent so far today, reviewing patient's test results, interviewing and examining him, reviewing plan of care with our team, and writing orders. Discharge diagnosis: Acute renal failure, likely multifactorial etiology. Hyperkalemia. Dental Secondary discharge diagnosis: Dental abscess. Likely dehydration and hypotension due to working out in the heat, and medications. - Time Spent with Patient Total time spent providing and/or coordinating discharge services: Greater than 30 minutes Medical - DS: Exam - Constitutional Vitals: Vital Signs Temp Pulse Resp BP Pulse Ox 04/08/17 07:48 97 04/08/17 07:06 97.7 F 20 165/89 95 04/08/17 04:00 97.1 F 69 18 147/90 96 04/07/17 23:09 97.6 F 70 14 144/92 97 04/07/17 19:20 97.6 F 72 14 150/87 98 04/07/17 15:33 97.7 F 16 141/85 99 Intake and Output 04/07/17 04/08/17 04/08/17 21:59 05:59 13:59 Intake Total 800 / 800 550 / 550 Output Total 1850 / 1850 Balance -1050 / -1050 550 / 550 Intake: Oral 800 / 800 550 / 550 Output: Void Amount 1850 / 1850 Other: Meal 2 containers of yogurt # Voids 2 Weight 303 lb Medical - DS: Data Labs on day of discharge: Labs from last 24 hours 04/08/17 04/08/17 04/08/17 06:13 05:00 05:00 WBC RBC Hgb Hct MCV MCH MCHC RDW Plt Count MPV Gran % Lymph % (Auto) [place] % (Auto) Eos % (Auto) Baso % (Auto) Gran # Lymph # (Auto) [place] # (Auto) Eos # (Auto) Baso # (Auto) PT 31.6 H INR 2.9 H Sodium 139 141 Potassium 4.9 5.0 Chloride 103 104 Carbon Dioxide 25 25 Anion Gap 11.0 12.0 BUN 39 H 39 H Creatinine 2.3 H 2.4 H GFR Calculation 29 28 Glucose 76 74 Uric Acid 4.5 4.5 Calcium 8.2 L 8.2 L Phosphorus 4.3 4.4 Magnesium 1.4 L 1.4 L Total Bilirubin 0.4 0.4 Direct Bilirubin < 0.2 < 0.2 GGT 26 27 AST 25 24 ALT 26 27 Alkaline Phosphatase 84 88 Lactate Dehydrogenase 253 H 255 H Total Protein 6.2 6.5 Albumin 3.5 3.7 Globulin 2.7 2.8 Albumin/Globulin Ratio 1.3 1.3 Triglycerides 58 60 04/08/17 04/07/17 05:00 16:05 WBC 6.1 RBC 3.84 L Hgb 11.6 L Hct 34.8 L MCV 90.8 MCH 30.2 MCHC 33.3 RDW 16.1 H Plt Count 124 L MPV 9.8 Gran % 58.1 Lymph % (Auto) 21.6 [place] % (Auto) 10.8 Eos % (Auto) 8.7 H Baso % (Auto) 0.8 Gran # 3.5 Lymph # (Auto) 1.3 L [place] # (Auto) 0.7 Eos # (Auto) 0.5 Baso # (Auto) 0 PT INR Sodium 137 Potassium 5.3 H Chloride 102 Carbon Dioxide 23 Anion Gap 12.0 BUN 45 H Creatinine 2.4 H GFR Calculation 28 Glucose 147 H Uric Acid Calcium 8.2 L Phosphorus Magnesium Total Bilirubin Direct Bilirubin GGT AST ALT Alkaline Phosphatase Lactate Dehydrogenase Total Protein Albumin Globulin Albumin/Globulin Ratio Triglycerides Medical - DS: A/P - Patient/Caregiver Discharge Instructions Activity: increase activity as tolerated Diet: Renal Additional Instructions: 1. Stop taking: Ibuprofen Lisinopril Colchicine Doxazosin Temporarily stop the Voltaren gel, until kidney function is stabilized. For pain, you may use tramadol, and limited doses of Tylenol. 2. Please drink at least 6-8 glasses of water per day. 3. Please follow-up with Dr. Callaway here at [facility], on Saturday @ 3:30 4. Please call the [facility] at 7:30 [phone] sharp on Saturday morning to get an appointment that day. You need to have bottom teeth removed, regarding ongoing infection. Hopefully you can arrange it for a late morning appointment so that you can still arrive at your appointment with Dr Callaway at 3: 30pm later that day. They said it was vitally IMPORTANT TO CALL AT 7:30 or you won't get an appointment. Take the penicillin prescription as ordered. Take your lab slips to the lab of your choice on Saturday04/10/17 to have your blood drawn. Please call your doctor or return to the emergency room, for recurrent dizziness , fever, vomiting, dizziness. Please weigh yourself every morning, after emptying your bladder, and keep a diary of this. Bring this to your appointments with Dr. Callaway. Please monitor your blood pressures at home, and call your doctor if they are running less than 120/80, or greater than 150/90 Prescriptions: amLODIPine [Norvasc] 5 mg PO DAILY #30 tablet Penicillin Vk 500 mg PO QID #28 tablet Other Amb Orders: Basic Metabolic Panel Time Frame: 2 Days, Location: Determined By Patient Complete Blood Count Time Frame: 2 Days, Location: Determined By Patient - Problem Maintenance (1) ARF (acute renal failure) Status: Acute (2) Acute hyperkalemia Status: Resolved (3) Acidosis, metabolic Status: Acute (4) Elevated INR Status: Acute (5) Coronary artery disease Status: Chronic (6) Type 2 diabetes mellitus Status: Chronic (7) Hypertension Status: Chronic (8) Sleep apnea in adult Status: Chronic (9) Atrial fibrillation Status: Resolved (10) Pacemaker Status: Chronic (11) AICD (automatic cardioverter/defibrillator) present Status: Chronic (12) Morbid obesity Status: Chronic (13) Gout Status: Chronic (14) GERD (gastroesophageal reflux disease) Status: Acute (15) Asthma Status: Chronic (16) Dental abscess Status: Acute - Follow up Plan Follow up with: Helen Callaway MD [Physician] - 04/12/17 3:30 pm Renae Bailey MD [Primary Care Provider] - 04/11/17 11:00 am (Please arrive 10 minutes early for your appointment) Disposition: Home, Self-Care Prognosis: Good Rehab Potential: Good Overall status at discharge: patient is not back to baseline Medical - DS: Qual - VTE Deep Vein Thrombosis/Pulmonary Embolism Present on Admission: No
--- NOTE | 2017-04-08 12:55 | Nephrology Progress Note ---
Subjective Patient information: Note initiated : 04/08/17 at 12:53 pm Service Date, if different from initiated Date: [] Patient: Will Felix 61 y/o M admitted on 04/04/17 for Actue Renal Failure, Hyperkalemia. Chief Complaint: [] Principal diagnosis: JABIER Interval history: patient was hyperkalemic yesterday, did have to give a dose of kayexalate Also has dental issues, on antibiotic for the same BP is a little better LE edema has improved he denies SOB, CP,d lightheadedness eager to go home Pertinent ROS: as above Objective - Vital Signs Vital signs: Vital Signs Temp Pulse Resp BP Pulse Ox 04/08/17 07:48 97 04/08/17 07:06 97.7 F 20 165/89 95 04/08/17 04:00 97.1 F 69 18 147/90 96 04/07/17 23:09 97.6 F 70 14 144/92 97 04/07/17 19:20 97.6 F 72 14 150/87 98 04/07/17 15:33 97.7 F 16 141/85 99 Intake and Output 04/07/17 04/08/17 04/08/17 21:59 05:59 13:59 Intake Total 800 / 800 550 / 550 Output Total 1850 / 1850 Balance -1050 / -1050 550 / 550 Intake: Oral 800 / 800 550 / 550 Output: Void Amount 1850 / 1850 Other: Meal 2 containers of yogurt # Voids 2 Weight 303 lb Intake & Output: Intake & Output 04/07/17 04/08/17 04/08/17 21:59 05:59 13:59 Intake Total 800 / 800 550 / 550 Output Total 1850 / 1850 Balance -1050 / -1050 550 / 550 Weight 303 lb Intake: Oral 800 / 800 550 / 550 Output: Void Amount 1850 / 1850 Other: Meal 2 containers of yogurt # Voids 2 - General Appearance General appearance: appears started age EENT: mucous membranes moist Neck: no JVD Respiratory: clear Cardiology: no rub, edema, normal S1, normal S2 Gastrointestinal: no tenderness, no guarding Integumentary: no rash, warm and dry Neurologic: no focal deficit Musculoskeletal: no erythema, no cyanosis Psychiatric: mood/affect appropriate - Lab 04/08/17 05:00 04/08/17 06:13 Most recent lab results Calcium 8.2 mg/dl (8.6-10.4) L 04/08/17 06:13 Phosphorus 4.3 mg/dL (2.7-4.5) 04/08/17 06:13 Magnesium 1.4 mg/dL (1.6-2.5) L 04/08/17 06:13 Assessment and Plan (1) ARF (acute renal failure) acute renal failure likely ATN from hypotension in the setting of use of ACEI, NSAIDS and diuretics renal US done at [facility] is negative for obstructive etiology UA is normal with no protienuria and no hematuria good urine output, slowly improving renal function metabolic acidosis resolved hyperkalemia resolved Mild hypocalcemia, hypomagnesemia and hyperphosphatemia related to JABIER and use of diuretics anemia: improving as well h/o HTN/CHF: stable plan: renal function continues to improve, fluid status is improving as well he is good be discharged from renal perspective would hold lisinopril for now Coreg and amlodipine for HTN , would ct diuretics discussed low K and low sodium diet with the pt advised to monitor BP at home he will see me in the clinic on Saturday this week with repeat labs on Thank you for giving me an opportunity to participate in Mr Felix's medical care , appreciate it Status: Acute (2) Acidosis, metabolic Status: Acute
[2017-04-08] MEDS ORDERED: WARFARIN 7.5 MG TABLET PO SCH ×2 (14:00)
[2017-04-09] MEDS ORDERED: PENICILLIN VK 250 MG TABLET PO ONE ×2 (01:20→06:33)
== END 2017-04-08 14:35 | disposition home or self-care (01) | DRG 683 ==
LOC: ICU 17:22 → MEDSUR 04-05 18:07
PROVIDERS: ADMIT Internal Medicine; ATTEND Internal Medicine